=== PATIENT | female | born 1975 | race Caucasian/White ===

== ENCOUNTER 2016-12-02 17:51 | Emergency (ER) | payer MEDICAID ==
[2016-12-02] MEDS ORDERED: BUTALB/ACETAM/CAFF 50/325/40MG TABLET PO STA (18:24)
== END 2016-12-02 19:01 | disposition home or self-care (01) ==
DX: G43.909 Migraine, unspecified, not intractable, without status migrainosus (principal); Z87.891 Personal history of nicotine dependence
CPT/HCPCS: 99283; 99284; A9270

== ENCOUNTER 2016-12-04 20:08 | Emergency (ER) | payer MEDICAID ==
[2016-12-04] MEDS ORDERED: oxyCODONE/ACET 5/325 Prepack 4 PO STA (20:30)
[2016-12-04] MEDS ORDERED: ONDANSETRON 4 MG/2 ML VIAL IM STA (20:30)
[2016-12-04] MEDS ORDERED: KETOROLAC 60 MG/2 ML VIAL IM STA (20:30)
[2016-12-04] MEDS ORDERED: ONDANSETRON 4 MG/2 ML VIAL ONE (20:35)
[2016-12-04] MEDS ORDERED: oxyCODONE/ACET 5/325 Prepack 4 PO ONE (20:35)
[2016-12-04] MEDS ORDERED: KETOROLAC 60 MG/2 ML VIAL ONE (20:35)
== END 2016-12-04 20:56 | disposition home or self-care (01) ==
DX: G43.001 Migraine without aura, not intractable, with status migrainosus (principal); Z91.14 Patient's other noncompliance with medication regimen; Z87.891 Personal history of nicotine dependence

== ENCOUNTER 2016-12-08 17:05 | Emergency (ER) | payer MEDICAID ==
[2016-12-08] MEDS ORDERED: PROMETHAZINE 25 MG/1 ML VIAL IM STA (17:34)
[2016-12-08] MEDS ORDERED: diphenhydrAMINE INJ 50 MG/ML VIAL IM STA (17:34)
[2016-12-08] MEDS ORDERED: PROMETHAZINE 25 MG/1 ML VIAL ONE (17:57)
[2016-12-08] MEDS ORDERED: diphenhydrAMINE INJ 50 MG/ML VIAL ONE (17:58)
[2016-12-08] MEDS ORDERED: HALOPERIDOL 5 MG/ML VIAL IM STA (18:34)
[2016-12-08] MEDS ORDERED: HALOPERIDOL 5 MG/ML VIAL ONE (18:38)
== END 2016-12-08 19:38 | disposition left against medical advice (07) ==
DX: G43.909 Migraine, unspecified, not intractable, without status migrainosus (principal); Z87.891 Personal history of nicotine dependence; Z53.20 Procedure and treatment not carried out because of patient's decision for unspecified reasons

== ENCOUNTER 2017-02-18 20:33 | Emergency (ER) | payer MEDICAID ==
[2017-02-18] MEDS ORDERED: ALBUTEROL 8 GM INHALER INH STA (20:54)
[2017-02-18] MEDS ORDERED: HYDROcod/ACET 5/325 Prepack 6 PO STA (20:54)
[2017-02-18] MEDS ORDERED: predniSONE 20 MG TABLET PO STA (20:54)
[2017-02-18] MEDS ORDERED: AZITHROMYCIN 250 MG TABLET PO STA (20:54)
[2017-02-18] MEDS ORDERED: AZITHROMYCIN 250 MG TABLET PO ONE (20:58)
[2017-02-18] MEDS ORDERED: HYDROcod/ACET 5/325 Prepack 6 PO ONE (20:58)
[2017-02-18] MEDS ORDERED: predniSONE 20 MG TABLET ONE (20:59)
[2017-02-18] MEDS ORDERED: ALBUTEROL 8 GM INHALER INH ONE (21:06)
== END 2017-02-18 21:25 | disposition home or self-care (01) ==
DX: J34.89 Other specified disorders of nose and nasal sinuses (principal); R06.2 Wheezing; J01.00 Acute maxillary sinusitis, unspecified; H66.93 Otitis media, unspecified, bilateral; R03.0 Elevated blood-pressure reading, without diagnosis of hypertension
CPT/HCPCS: 94640; 94664; 99283; A9270; J7512

== ENCOUNTER 2017-02-26 20:07 | Emergency (ER) | payer MEDICAID ==
[2017-02-26] MEDS ORDERED: diphenhydrAMINE INJ 50 MG/ML VIAL IVP STA (21:06)
[2017-02-26] MEDS ORDERED: SODIUM CHLORIDE 0.9% 1,000 ML IV ONE ×2 (21:06→21:14)
[2017-02-26] MEDS ORDERED: PROCHLORPERAZINE 10 MG/2 ML VIAL IVP STA (21:06)
[2017-02-26] MEDS ORDERED: KETOROLAC 60 MG/2 ML VIAL IVP STA (21:07)
[2017-02-26] MEDS ORDERED: DEXAMETHASONE 10 MG/ML VIAL IVP STA (21:07)
[2017-02-26] MEDS ORDERED: diphenhydrAMINE INJ 50 MG/ML VIAL ONE (21:13)
[2017-02-26] MEDS ORDERED: DEXAMETHASONE 10 MG/ML VIAL ONE (21:14)
[2017-02-26] MEDS ORDERED: PROCHLORPERAZINE 10 MG/2 ML VIAL ONE (21:14)
[2017-02-26] MEDS ORDERED: KETOROLAC 30 MG/ML VIAL ONE (21:22)
[2017-02-26] MEDS ORDERED: oxyCOD/ACETAMIN 5 MG/325 MG TABLET PO STA (21:46)
[2017-02-26] MEDS ORDERED: oxyCOD/ACETAMIN 5 MG/325 MG TABLET PO ONE (21:50)
== END 2017-02-26 22:13 | disposition home or self-care (01) ==
DX: G43.909 Migraine, unspecified, not intractable, without status migrainosus (principal); Z87.891 Personal history of nicotine dependence
CPT/HCPCS: 96361; 96374; 96375; 99283; 99284; A9270

== ENCOUNTER 2017-04-03 09:16 | Emergency (ER) | payer MEDICAID ==
[2017-04-03 09:30] VITALS: BP 123/67
[2017-04-03] MEDS ORDERED: DEXAMETHASONE 10 MG/ML VIAL PO STA (10:04)
[2017-04-03] MEDS ORDERED: DEXAMETHASONE 10 MG/ML VIAL ONE (10:11)
--- NOTE | 2017-04-03 10:24 | ED Physician Documentation ---
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 : None HEENT: None, Chronic sinusitis Psych: Depression, Anxiety Musculoskeletal: None Derm: None - Past Surgical History Past Surgical History: Yes Ortho: Spine surgery HEENT: Tonsil/Adenoidectomy - Present Medications Home Medications: Ambulatory Orders Medication Instructions Recorded Confirmed Bupropion HCl [Wellbutrin] 200 mg PO DAILY 03/29/16 02/26/17 Aripiprazole [Abilify] 5 mg PO DAILY 07/19/16 02/26/17 traZODone [Desyrel] 100 mg PO QPM 07/19/16 02/26/17 Prazosin [Minipress] 2 mg PO DAILY 12/02/16 02/26/17 Triliptal 200 mg PO DAILY 12/02/16 02/26/17 Ketorolac [Toradol] 10 mg PO DAILY 02/18/17 02/26/17 Propranolol ER [Inderal LA] 1 tab PO DAILY 02/18/17 02/26/17 Promethazine [Phenergan] 25 - 50 mg PO Q6H PRN #10 tab 02/26/17 Clindamycin [Cleocin] 300 mg PO Q6H 7 Days 04/03/17 - Allergies Allergies/Adverse Reactions: Allergies Allergy/AdvReac Type Severity Reaction Status Date / Time Penicillins Allergy Rash Verified 02/26/17 20:11 - Social History Does the pt smoke?: No Smoking Status: Former smoker Does the pt drink ETOH?: Yes Does the pt have substance abuse?: No - Immunizations Immunizations are current?: Yes - POLST Patient has POLST: No PD ED PE NORMAL - Vitals Vital signs reviewed: Yes - HEENT HEENT: Other (left lower premoalr very TTP with some decay to inner side near gum, no visible abscess, some cheeck swelling and ant adenopathy, no sublingual swelling, no trismus) - Neck Neck: Supple, no meningeal sign, Other (no pain with tracheal manipulation) - Cardiac Cardiac: RRR, No murmur - Respiratory Respiratory: No respiratory distress, Clear bilaterally Results - Vitals Vitals: Vital Signs - 24 hr 04/03/17 09:23 Temperature 36.6 C Heart Rate 66 Respiratory 14 Rate Blood Pressure 123/67 O2 Saturation 98 Oxygen O2 Source Room air PD MEDICAL DECISION MAKING - ED course ED course: pt has an BASIL with several controlled rx this year will given decadron in ER for pain and swelling, clinda ((pt state fhx anaphylaxis to penicillin and has been advised not to take) motrin and tylenol and oragel Departure - Departure Disposition: 01 Home, Self Care Clinical Impression: Dental infection Condition: Good Instructions: ED Dental Abscess Facial Cellulitis Prescriptions: Clindamycin [Cleocin] 300 mg PO Q6H 7 Days Comments: The decadron given in the ER should decrease the pain and swelling for at least 48 hours. You can also take tylenol or motrin or try orajel as needed for the pain Take the antibiotic as prescribed - with a probiotic as discussed Follow up with your dentist tomorrow Forms: Activity restrictions
== END 2017-04-03 10:37 | disposition home or self-care (01) ==
LOC: ED 09:16
DX: K04.7 Periapical abscess without sinus (principal); Z87.891 Personal history of nicotine dependence
CPT/HCPCS: 99283

== ENCOUNTER 2017-04-18 19:15 | Emergency (ER) | payer MEDICAID ==
[2017-04-18] MEDS ORDERED: KETOROLAC 60 MG/2 ML VIAL IM STA (21:12)
[2017-04-18] MEDS ORDERED: cefTRIAXone 1 GM VIAL IM STA (21:12)
[2017-04-18] MEDS ORDERED: DEXAMETHASONE 10 MG/ML VIAL PO STA (21:13)
[2017-04-18] MEDS ORDERED: cefTRIAXone 1 GM VIAL ONE (21:17)
[2017-04-18] MEDS ORDERED: DEXAMETHASONE 10 MG/ML VIAL ONE (21:17)
--- NOTE | 2017-04-18 21:17 | ED Physician Documentation ---
PD HPI HEENT - Stated complaint Stated Complaint: DENTAL PAIN - Chief complaint Chief Complaint: Heent - History obtained from History obtained from: Patient - History of Present Illness Timing - onset: How many days ago (3) Timing - duration: Days (3) Timing - details: Gradual onset Pain level max: 8 Pain level now: 8 Location: Tooth (lower R premolar) Improves: Nothing Worsens: Temperatures Associated symptoms: Facial swelling (R lower mandible). No: Fever, Congestion , Rhinorrhea, Trismus, Unable to swallow, Swollen nodes, Headache, Cough, Other Similar symptoms before: Diagnosis (dental abscess) Recently seen: Emergency Dept (2 weeks ago for same, has not been able to see her dentist) Review of Systems Constitutional: denies: Fever, Chills Throat: denies: Sore throat Cardiac: denies: Chest pain / pressure Respiratory: denies: Cough, Wheezing : denies: Dysuria, Now EGA Skin: denies: Rash Musculoskeletal: denies: Neck pain, Back pain Neurologic: denies: Headache PD PAST MEDICAL HISTORY - Past Medical History Cardiovascular: Murmur Respiratory: None Neuro: Headache/migraine Endocrine/Autoimmune: None GI: None 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 : None HEENT: None, Chronic sinusitis Psych: Depression, Anxiety Musculoskeletal: None Derm: None - Past Surgical History Past Surgical History: Yes Ortho: Spine surgery HEENT: Tonsil/Adenoidectomy - Present Medications Home Medications: Ambulatory Orders Medication Instructions Recorded Confirmed Bupropion HCl [Wellbutrin] 200 mg PO DAILY 03/29/16 04/18/17 Aripiprazole [Abilify] 5 mg PO DAILY 07/19/16 04/18/17 traZODone [Desyrel] 100 mg PO QPM 07/19/16 04/18/17 Prazosin [Minipress] 2 mg PO DAILY 12/02/16 04/18/17 Triliptal 200 mg PO DAILY 12/02/16 04/18/17 Ketorolac [Toradol] 10 mg PO DAILY 02/18/17 04/18/17 Propranolol ER [Inderal LA] 1 tab PO DAILY 02/18/17 04/18/17 Promethazine [Phenergan] 25 - 50 mg PO Q6H PRN #10 tab 02/26/17 04/18/17 Clindamycin HCl 300 mg PO Q6H #40 capsule 04/18/17 Hydrocodone/Acetaminophen 1 - 2 each PO Q6H PRN #4 tablet 04/18/17 [Hydrocodon-Acetaminophen 5-325] - Allergies Allergies/Adverse Reactions: Allergies Allergy/AdvReac Type Severity Reaction Status Date / Time Penicillins Allergy Rash Verified 02/26/17 20:11 - Social History Does the pt smoke?: No Smoking Status: Former smoker Does the pt drink ETOH?: Yes Does the pt have substance abuse?: No - Immunizations Immunizations are current?: Yes - POLST Patient has POLST: No PD ED PE NORMAL - Vitals Vital signs reviewed: Yes - General General: Alert and oriented X 3, No acute distress - HEENT HEENT: Other (Swelling to the lateral aspects of the right lower premolar. Tenderness is at this tooth. There is induration without fluctuance. 1x1 cm area) - Neck Neck: Supple, no meningeal sign, No adenopathy - Cardiac Cardiac: RRR - Respiratory Respiratory: No respiratory distress, Clear bilaterally - Derm Derm: Warm and dry - Neuro Neuro: Alert and oriented X 3 - Psych Psych: Normal mood, Normal affect Results - Vitals Vitals: Vital Signs - 24 hr 04/18/17 04/18/17 19:17 21:58 Temperature 36.3 C L 36.9 C Heart Rate 80 68 Respiratory 16 19 Rate Blood Pressure 122/74 116/74 O2 Saturation 97 97 Oxygen O2 Source Room air PD MEDICAL DECISION MAKING - ED course Complexity details: considered differential, d/w patient ED course: Patient is a 41-year-old female who presents to the emergency department with recurrent dental infections. Has not seen her dentist since her last visit here. The facial swelling and has not yet obsessed. We will give her steroids, small amount of pain medications and place her back on antibiotics. Given intramuscular Rocephin here. No Ludwigs angina. Normal phonation. No trismus. No facial cellulitis. Patient counseled regarding signs and symptoms for which I believe and urgent re-evaluation would be necessary. Patient with good understanding of and agreement to plan and is comfortable going home at this time This document was made in part using voice recognition software. While efforts are made to proofread this document, sound alike and grammatical errors may occur. Departure - Departure Disposition: 01 Home, Self Care Clinical Impression: Dental infection Condition: Good Instructions: ED Abscess Tooth Follow-Up: your,dentist tomorrow [Other] Jordon Cotto MD [Primary Care Provider] - Prescriptions: Clindamycin HCl 300 mg PO Q6H #40 capsule Hydrocodone/Acetaminophen [Hydrocodon-Acetaminophen 5-325] 1 - 2 each PO Q6H PRN #4 tablet PRN Reason: pain Comments: Take all antibiotics until gone. Return if you worsen. It is important that you call your dentist in the morning for close follow-up. You will likely need the tooth pulled. Discharge Date/Time: 04/18/17 22:22
[2017-04-18] MEDS ORDERED: KETOROLAC 60 MG/2 ML VIAL ONE (21:18)
[2017-04-18] MEDS ORDERED: LIDOCAINE 1% 2 ML VIAL ONE (21:18)
[2017-04-18 21:59] VITALS: BP 116/74
[2017-04-18] MEDS ORDERED: HYDROcod/ACET 5/325 Prepack 6 PO ONE ×2 (22:13→22:14)
== END 2017-04-18 22:22 | disposition home or self-care (01) ==
LOC: ED 19:15
DX: K04.7 Periapical abscess without sinus (principal); Z87.891 Personal history of nicotine dependence
CPT/HCPCS: 96372; 99283

== ENCOUNTER 2017-06-07 20:45 | Emergency (ER) | payer MEDICAID ==
--- NOTE | 2017-06-07 21:03 | ED Physician Documentation ---
PD HPI HEADACHE - Stated complaint Stated Complaint: HEADACHE - Chief complaint Chief Complaint: Neuro - History obtained from History obtained from: Patient - History of Present Illness Timing - onset: Today (this morning) Timing - onset during: Rest Timing - details: Gradual onset, Constant, Waxing and waning Pain level now: 8 Worst headache ever?: No: Worst headache ever? Location: Front, Right, Left Quality: Throbbing Associated symptoms: Nausea. No: Fever, Stiff neck, Vomiting, Weakness, Numbness Improved by: Rest, Dark room, Quiet Worsened by: Light, Noise Contributing factors: No: Anticoagulated, Hypertension Similar symptoms before: Diagnosis (c/w previous episodes of migraine headache) - Additional information Additional information: 11th [facility] ED visit over past 12 months. She presents with "migraine all day since this morning" (per patient), typical of her migraine headaches. I do not see any medications for acute headache on her list of prescribed medications, only preventive meds. I discussed this with her, and she says her neurologist "didn't really listen to me" (per patient) when she told him that she hadn't responded to typical acute medications (such as Imitrex). Review of Systems Constitutional: denies: Fever, Chills, Sweats Eyes: reports: Photophobia Cardiac: reports: Reviewed and negative Respiratory: reports: Reviewed and negative GI: reports: Nausea. 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 : None HEENT: None, Chronic sinusitis Psych: Depression, Anxiety Musculoskeletal: None Derm: None - Past Surgical History Past Surgical History: Yes Ortho: Spine surgery HEENT: Tonsil/Adenoidectomy - Present Medications Home Medications: Ambulatory Orders Medication Instructions Recorded Confirmed Bupropion HCl [Wellbutrin] 200 mg PO DAILY 03/29/16 06/07/17 traZODone [Desyrel] 100 mg PO QPM 07/19/16 06/07/17 Prazosin [Minipress] 2 mg PO DAILY 12/02/16 06/07/17 Propranolol ER [Inderal LA] 1 tab PO DAILY 02/18/17 06/07/17 Promethazine [Phenergan] 25 - 50 mg PO Q6H PRN #10 tab 02/26/17 06/07/17 - Allergies Allergies/Adverse Reactions: Allergies Allergy/AdvReac Type Severity Reaction Status Date / Time Penicillins Allergy Rash Verified 06/07/17 20:50 - Social History Does the pt smoke?: No Smoking Status: Former smoker Does the pt drink ETOH?: Yes Does the pt have substance abuse?: No - Immunizations Immunizations are current?: Yes - POLST Patient has POLST: No PD ED PE NORMAL - Vitals Vital signs reviewed: Yes - General General: Alert and oriented X 3, No acute distress (NAD with lights off in room) , Well developed/nourished - HEENT HEENT: PERRL, EOMI, Moist mucous membranes - Neck Neck: Supple, no meningeal sign - Cardiac Cardiac: RRR, No murmur - Respiratory Respiratory: No respiratory distress, Clear bilaterally - Neuro Neuro: Alert and oriented X 3, 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 Patient says she feels the same, maybe worse. She now tells me she forgot that Toradol makes her headache worse. I had specifically discussed each individual medication I intended to order for her (and that these were based on my review of previous charts from her previous visits to [facility]), including Toradol. At that time, patient did not mention any history of difficulty with Toradol. She says the last time she was here for headache, the doctor "didn't really listen to me", and "he insisted I have the Toradol". I asked her what medications tended to work for her, and shes says two percocet and "a muscle relaxant". She does not know which muscle relaxant works for her. I explained that I would order a second dose of percocet, and a dose of Flexeril (cyclobenzaprine). She says she has no recollection of difficulty with this medication. On reevaluation, after the second dose of percocet, and the one dose of flexeril, patient appears comfortable and reports significant relief , and that she is comfortable with d/c home. Given take-home flexeril and percocet. She says she will contact her doctor in the morning to work on arranging a follow-up appointment Departure - Departure Disposition: 01 Home, Self Care Clinical Impression: Migraine Condition: Good Instructions: ED Headache Migraine Follow-Up: Jordon Cotto MD [Primary Care Provider] - Discharge Date/Time: 06/07/17 23:16
[2017-06-07] MEDS ORDERED: KETOROLAC 60 MG/2 ML VIAL IM STA (21:20)
[2017-06-07] MEDS ORDERED: PROCHLORPERAZINE 5 MG TABLET PO STA (21:20)
[2017-06-07] MEDS ORDERED: oxyCOD/ACETAMIN 5 MG/325 MG TABLET PO STA ×2 (21:21→22:09)
[2017-06-07] MEDS ORDERED: DEXAMETHASONE 10 MG/ML VIAL PO STA (21:21)
[2017-06-07] MEDS ORDERED: diphenhydrAMINE 25 MG CAPSULE PO STA (21:21)
[2017-06-07] MEDS ORDERED: PROCHLORPERAZINE 5 MG TABLET ONE (21:29)
[2017-06-07] MEDS ORDERED: diphenhydrAMINE 25 MG CAPSULE PO ONE (21:29)
[2017-06-07] MEDS ORDERED: oxyCOD/ACETAMIN 5 MG/325 MG TABLET PO ONE ×2 (21:29→22:10)
[2017-06-07] MEDS ORDERED: KETOROLAC 60 MG/2 ML VIAL ONE (21:29)
[2017-06-07] MEDS ORDERED: DEXAMETHASONE 10 MG/ML VIAL ONE (21:29)
[2017-06-07] MEDS ORDERED: CYCLOBENZAPRINE 10 MG TABLET PO STA (22:09)
[2017-06-07] MEDS ORDERED: CYCLOBENZAPRINE 10 MG TABLET PO ONE (22:10)
[2017-06-07] MEDS ORDERED: CYCLOBENZAPRINE 10 MG Prepack 2 PO PRN (22:57)
[2017-06-07] MEDS ORDERED: oxyCODONE/ACET 5/325 Prepack 4 PO STA (22:57)
[2017-06-07] MEDS ORDERED: oxyCODONE/ACET 5/325 Prepack 4 PO ONE (22:59)
[2017-06-07] MEDS ORDERED: CYCLOBENZAPRINE 10 MG Prepack 2 PO ONE (23:00)
[2017-06-07 23:13] VITALS: BP 99/67
== END 2017-06-07 23:16 | disposition home or self-care (01) ==
LOC: ED 20:45
DX: G43.909 Migraine, unspecified, not intractable, without status migrainosus (principal); Z87.891 Personal history of nicotine dependence
CPT/HCPCS: 96372; 99283; A9270

== ENCOUNTER 2017-06-12 20:06 | Emergency (ER) | payer MEDICAID ==
--- NOTE | 2017-06-12 22:08 | ED Physician Documentation ---
PD HPI HEADACHE - Stated complaint Stated Complaint: HEADACHE - Chief complaint Chief Complaint: Neuro - History obtained from History obtained from: Patient - History of Present Illness Timing - onset: How many days ago (2-3) Timing - onset during: Light activity Timing - duration: Days Timing - details: Gradual onset, Still present, Waxing and waning Worst headache ever?: No: Worst headache ever? Location: Back Quality: Throbbing, Aching, Other (also with muscle stiffness and tenderness in lower cervical area both sides.) Improved by: No: Dark room, Meds (OTC ibuprofen) Worsened by: Light Contributing factors: No: Recent illness, Trauma Similar symptoms before: Diagnosis (migraines and muscle tension headaches) Recently seen: Emergency Dept Review of Systems Constitutional: denies: Fever, Chills Eyes: reports: Photophobia. denies: Loss of vision, Decreased vision Nose: denies: Rhinorrhea / runny nose, Congestion Throat: denies: Sore throat Respiratory: denies: Cough Neurologic: reports: Headache. 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 : None HEENT: None, Chronic sinusitis Psych: Depression, Anxiety Musculoskeletal: None Derm: None - Past Surgical History Past Surgical History: Yes Ortho: Spine surgery HEENT: Tonsil/Adenoidectomy - Present Medications Home Medications: Ambulatory Orders Medication Instructions Recorded Confirmed Bupropion HCl [Wellbutrin] 200 mg PO DAILY 03/29/16 06/07/17 traZODone [Desyrel] 100 mg PO QPM 07/19/16 06/07/17 Prazosin [Minipress] 2 mg PO DAILY 12/02/16 06/07/17 Propranolol ER [Inderal LA] 1 tab PO DAILY 02/18/17 06/07/17 Promethazine [Phenergan] 25 - 50 mg PO Q6H PRN #10 tab 02/26/17 06/07/17 - Allergies Allergies/Adverse Reactions: Allergies Allergy/AdvReac Type Severity Reaction Status Date / Time Penicillins Allergy Rash Verified 06/12/17 20:17 - Social History Does the pt smoke?: No Smoking Status: Former smoker Does the pt drink ETOH?: Yes Does the pt have substance abuse?: No - Immunizations Immunizations are current?: Yes - POLST Patient has POLST: No PD ED PE NORMAL - Vitals Vital signs reviewed: Yes - General General: Alert and oriented X 3, No acute distress, Well developed/nourished - HEENT HEENT: PERRL, EOMI (mild light sensitive) - Neck Neck: Supple, no meningeal sign, No bony TTP, No adenopathy, Other (muscular tenderness mid to upper trapezius area both sides. No redness nor rash. ) - Cardiac Cardiac: RRR, No murmur - Respiratory Respiratory: Clear bilaterally - Derm Derm: Normal color, Warm and dry, No rash - Extremities Extremities: Normal ROM s pain - Neuro Neuro: Alert and oriented X 3, bioinformaticist 2-12 intact, No motor deficit, No sensory deficit, Normal speech, Other - Psych Psych: Normal mood, Normal affect Results - Vitals Vitals: Vital Signs - 24 hr 06/12/17 06/12/17 20:15 23:03 Temperature 36.2 C L Heart Rate 55 L 77 Respiratory 16 17 Rate Blood Pressure 111/73 116/57 L O2 Saturation 99 96 Oxygen O2 Source Room air PD MEDICAL DECISION MAKING - ED course Complexity details: reviewed old records, considered differential (seems like muscle tension headache more than migraine and she says muscle relaxant and Percocet work best in the past. Review of recent visits suggest migraine targeted meds did not work well. She was amenable to muscle injections in trapezius upper area. I did injections in lateral lower cervical area muscles 2 ml each side with Marcaine. Also with PO meds. She says she was feeling much better after about 1/2 hour. Feels able to go. Did not want Rx for meds ( prepack given). I got less of a vibe for med seeking and more just poor tolerance of the headache/pain. ), d/w patient Departure - Departure Disposition: 01 Home, Self Care Clinical Impression: Migraine Qualifiers: Migraine type: without aura Status migrainosus presence: without status migrainosus Intractability: not intractable Qualified Code(s): G43.009 - Migraine without aura, not intractable, without status migrainosus Condition: Stable Record reviewed to determine appropriate education?: Yes Instructions: ED Headache Migraine Follow-Up: Jordon Cotto MD [Primary Care Provider] - Comments: Drink lots of fluids. Tylenol or ibuprofen if needed for pains. At the oxycodone from the prepack if needed every 6 hours. Follow-up with her primary care in the next couple of days. Discharge Date/Time: 06/12/17 23:04
[2017-06-12] MEDS ORDERED: oxyCOD/ACETAMIN 5 MG/325 MG TABLET PO STA (22:20)
[2017-06-12] MEDS ORDERED: CYCLOBENZAPRINE 10 MG TABLET PO STA (22:20)
[2017-06-12] MEDS ORDERED: CYCLOBENZAPRINE 10 MG TABLET PO ONE (22:22)
[2017-06-12] MEDS ORDERED: oxyCOD/ACETAMIN 5 MG/325 MG TABLET PO ONE (22:22)
[2017-06-12] MEDS ORDERED: ONDANSETRON ODT 4 MG Prepack 2 TL PRN (22:56)
[2017-06-12] MEDS ORDERED: oxyCODONE/ACET 5/325 Prepack 4 PO STA (22:56)
[2017-06-12] MEDS ORDERED: oxyCODONE/ACET 5/325 Prepack 4 PO ONE (22:57)
[2017-06-12] MEDS ORDERED: ONDANSETRON ODT 4 MG Prepack 2 TL ONE (22:57)
[2017-06-12 23:04] VITALS: BP 116/57
== END 2017-06-12 23:04 | disposition home or self-care (01) ==
LOC: ED 20:06
DX: G43.009 Migraine without aura, not intractable, without status migrainosus (principal); M79.1 Myalgia; Z87.891 Personal history of nicotine dependence
CPT/HCPCS: 20552; 99283; 99284; A9270

== ENCOUNTER 2017-06-22 19:26 | Emergency (ER) | payer MEDICAID ==
[2017-06-22] MEDS ORDERED: LIDOCAINE 2%-EPI 1:100000 20 ML MDV SUBQ STA (21:23)
[2017-06-22] MEDS ORDERED: LIDOCAINE TOPICAL 4% 50 ML BOTTLE MM STA (21:23)
[2017-06-22] MEDS ORDERED: LIDOCAINE 2% 10 ML MDV ONE (21:30)
[2017-06-22] MEDS ORDERED: LIDOCAINE TOPICAL 4% 50 ML BOTTLE ONE (21:43)
[2017-06-22 22:05] VITALS: BP 114/64
[2017-06-22] MEDS ORDERED: oxyCOD/ACETAMIN 5 MG/325 MG TABLET PO STA (22:31)
[2017-06-22] MEDS ORDERED: CYCLOBENZAPRINE 10 MG TABLET PO STA (22:32)
--- NOTE | 2017-06-22 22:34 | ED Physician Documentation ---
PD HPI HEADACHE - Stated complaint Stated Complaint: WILKERSON - Chief complaint Chief Complaint: Neuro - History obtained from History obtained from: Patient, Family - History of Present Illness Timing - onset: How many days ago (3) Timing - duration: Days Timing - details: Gradual onset Pain level max: 9 Pain level now: 9 Worst headache ever?: No: Worst headache ever? Location: Global Quality: Throbbing, Aching. No: Thunderclap Associated symptoms: No: Fever, Stiff neck, Nausea, Vomiting, Weakness, Numbness , Syncope, Seizure, Eye pain, Vision changes Improved by: Rest Worsened by: Moving Similar symptoms before: Diagnosis (Tension headaches, possible migraine headaches) Recently seen: Other (Seen here several times in the past for same. States has a neurology appointment upcoming) - Additional information Additional information: Patient states that she has been under increasing stress recently and having increasing arguments with her spouse Review of Systems Constitutional: denies: Fever, Chills Eyes: denies: Decreased vision Nose: denies: Rhinorrhea / runny nose, Congestion Throat: denies: Sore throat Respiratory: denies: Cough, Wheezing GI: denies: Abdominal Pain, Nausea, Vomiting : denies: Dysuria, Now EGA Skin: denies: Rash Musculoskeletal: denies: Neck pain, Back pain Neurologic: denies: Focal weakness, Numbness, LOC PD PAST MEDICAL HISTORY - Past Medical History Cardiovascular: Murmur Respiratory: None Neuro: Headache/migraine Endocrine/Autoimmune: None 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 HEENT: None, Chronic sinusitis Psych: Depression, Anxiety Musculoskeletal: None Derm: None - Past Surgical History Past Surgical History: Yes Ortho: Spine surgery HEENT: Tonsil/Adenoidectomy - Present Medications Home Medications: Ambulatory Orders Medication Instructions Recorded Confirmed Bupropion HCl [Wellbutrin] 200 mg PO DAILY 03/29/16 06/22/17 traZODone [Desyrel] 100 mg PO QPM 07/19/16 06/22/17 Prazosin [Minipress] 2 mg PO DAILY 12/02/16 06/22/17 Cyclobenzaprine [Flexeril] 10 mg PO TID PRN #10 tablet 06/22/17 Oxycodone HCl/Acetaminophen 1 - 2 each PO Q6H PRN #7 tablet 06/22/17 [Percocet 5-325 mg Tablet] - Allergies Allergies/Adverse Reactions: Allergies Allergy/AdvReac Type Severity Reaction Status Date / Time Penicillins Allergy Rash Verified 06/22/17 19:37 - Social History Does the pt smoke?: No Smoking Status: Former smoker Does the pt drink ETOH?: Yes Does the pt have substance abuse?: No - Immunizations Immunizations are current?: Yes - POLST Patient has POLST: No PD ED PE NORMAL - Vitals Vital signs reviewed: Yes (Initial pulse oximetry was 97% on room air) - General General: Alert and oriented X 3, No acute distress - HEENT HEENT: PERRL, EOMI, Moist mucous membranes - Neck Neck: Supple, no meningeal sign - Cardiac Cardiac: RRR, Strong equal pulses - Respiratory Respiratory: No respiratory distress, Clear bilaterally - Abdomen Abdomen: Soft, Non tender - Derm Derm: Warm and dry - Extremities Extremities: No edema - Neuro Neuro: Alert and oriented X 3, 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 posting specialist 2-12 intact, No motor deficit, No sensory deficit, Normal speech - Psych Psych: Normal mood, Normal affect Results - Vitals Vitals: Vital Signs - 24 hr 06/22/17 06/22/17 19:35 22:03 Temperature 36.8 C Heart Rate 75 51 L Respiratory 18 14 Rate Blood Pressure 129/74 114/64 O2 Saturation 7 L 98 Oxygen O2 Source Room air Procedures - Regional nerve block Nerve block site: Other (Occipital) Right / left: Both Nerve block anesthesia: Lidocaine 2% Nerve block aftercare: Excellent anesthesia, Patient tolerated well, No complications PD MEDICAL DECISION MAKING - ED course Complexity details: reviewed old records, re-evaluated patient, considered differential, d/w patient ED course: Patient is a 41-year-old female who presents to the emergency department with what sounds like a combination of a tension headache and migraine headache. She states that occipital nerve blocks have worked well for her in the past and this was performed. A sphenopalatine ganglion block was also performed with intranasal lidocaine, overall this reduced her headache by approximately 60-70% . We will prescribe her a small amount of medications for home as well. She was also given a dose of oxycodone and Flexeril prior to discharge. Looking back at her medical records, she tends to have these headaches that occur for 3- 4 days at a time. Possible cluster headaches? She is following up with neurology for further evaluation and care. Has had neuro imaging of her brain performed in the past without acute abnormality found. No evidence of subarachnoid hemorrhage today. This document was made in part using voice recognition software. While efforts are made to proofread this document, sound alike and grammatical errors may occur. Departure - Departure Disposition: 01 Home, Self Care Clinical Impression: Tension headache Condition: Good Instructions: ED Headache Tension, ED Cephalgia Unspecified Follow-Up: Jordon Cotto MD [Primary Care Provider] - Within 1 week Prescriptions: Cyclobenzaprine [Flexeril] 10 mg PO TID PRN #10 tablet PRN Reason: Spasms Oxycodone HCl/Acetaminophen [Percocet 5-325 mg Tablet] 1 - 2 each PO Q6H PRN #7 tablet PRN Reason: pain Comments: Return if you worsen. Make sure to follow-up with your neurologist for further evaluation and care. Do not drink alcohol or drive while on narcotic pain medicine. Note that many narcotic pain relievers also contain tylenol/acetaminophen. Please ensure that your total dose of acetaminophen from all sources does not exceed 3 grams (3000mg) per day. You may constipated on this medication, take a stool softener such as "Colace" twice a day while you are on it. Also recommend a [id number] laxative such as senna or MiraLAX any day that you do not have a bowel movement. If you received narcotic pain medication in the emergency department, do not drive or operate machinery for the next 24 hours. Discharge Date/Time: 06/22/17 23:00
[2017-06-22] MEDS ORDERED: oxyCOD/ACETAMIN 5 MG/325 MG TABLET PO ONE (22:37)
[2017-06-22] MEDS ORDERED: CYCLOBENZAPRINE 10 MG TABLET PO ONE (22:38)
== END 2017-06-22 23:00 | disposition home or self-care (01) ==
LOC: ED 19:26
DX: G44.209 Tension-type headache, unspecified, not intractable (principal); Z87.891 Personal history of nicotine dependence
CPT/HCPCS: 64405; 96372; 99283; A9270

== ENCOUNTER 2017-06-28 22:07 | Emergency (ER) | payer MEDICAID ==
[2017-06-28] MEDS ORDERED: oxyCOD/ACETAMIN 5 MG/325 MG TABLET PO STA (23:01)
[2017-06-28] MEDS ORDERED: LIDOCAINE 2% 10 ML MDV ONE (23:06)
[2017-06-28] MEDS ORDERED: oxyCOD/ACETAMIN 5 MG/325 MG TABLET PO ONE (23:16)
--- NOTE | 2017-06-28 23:53 | ED Physician Documentation ---
PD HPI HEADACHE - Stated complaint Stated Complaint: WILKERSON - Chief complaint Chief Complaint: Neuro - History obtained from History obtained from: Patient - History of Present Illness Timing - onset: Chronic Timing - onset during: Rest Timing - details: Gradual onset, Still present Worst headache ever?: Worst headache ever? (no) Location: Back Quality: Aching, Tightness Associated symptoms: No: Fever, Stiff neck, Nausea, Vomiting, Weakness, Syncope Improved by: Dark room, Meds Worsened by: Light Contributing factors: No: Anticoagulated, Possible carbon monoxide Similar symptoms before: Work up / diagnostics, Treatment, Follow up Recently seen: Emergency Dept - Additional information Additional information: Patient is a 41 year old female with a history of recurrent headaches who is presenting to the emergency department for headaches. patient states that this is fairly similar to her previous headaches. Patient states that she has been working with a neurologist and has a follow up appointment next week. Patient states that nerve blocks tend to help but toradol, reglan and fluids tends to make her symptoms worse. Review of Systems Constitutional: denies: Fever, Chills Eyes: reports: Photophobia Ears: denies: Ear pain, Drainage/discharge Nose: denies: Rhinorrhea / runny nose, Congestion Throat: denies: Dental pain / toothache, Sore throat Cardiac: denies: Chest pain / pressure, Palpitations GI: denies: Abdominal Pain, Nausea, Vomiting : denies: Dysuria, Frequency Musculoskeletal: reports: Neck pain. denies: Back pain, Extremity pain Neurologic: reports: Headache. 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 HEENT: None, Chronic sinusitis Psych: Depression, Anxiety Musculoskeletal: None Derm: None - Past Surgical History Past Surgical History: Yes Ortho: Spine surgery HEENT: Tonsil/Adenoidectomy - Present Medications Home Medications: Ambulatory Orders Medication Instructions Recorded Confirmed Bupropion HCl [Wellbutrin] 200 mg PO DAILY 03/29/16 06/28/17 traZODone [Desyrel] 100 mg PO QPM 07/19/16 06/28/17 Prazosin [Minipress] 2 mg PO DAILY 12/02/16 06/28/17 Cyclobenzaprine [Flexeril] 10 mg PO TID PRN #10 tablet 06/22/17 06/28/17 Oxycodone HCl/Acetaminophen 1 - 2 each PO Q6H PRN #7 tablet 06/22/17 06/28/17 [Percocet 5-325 mg Tablet] - Allergies Allergies/Adverse Reactions: Allergies Allergy/AdvReac Type Severity Reaction Status Date / Time Penicillins Allergy Rash Verified 06/28/17 22:14 - Social History Does the pt smoke?: No Smoking Status: Former smoker Does the pt drink ETOH?: Yes Does the pt have substance abuse?: No - Immunizations Immunizations are current?: Yes - POLST Patient has POLST: No PD ED PE NORMAL - Vitals Vital signs reviewed: Yes - General General: Alert and oriented X 3, No acute distress - HEENT HEENT: Atraumatic, PERRL, Moist mucous membranes, Pharynx benign - Neck Neck: Supple, no meningeal sign - Cardiac Cardiac: RRR, No murmur - Respiratory Respiratory: No respiratory distress - Abdomen Abdomen: Soft, Non tender, Non distended - Derm Derm: Normal color, Warm and dry, No rash - Extremities Extremities: No deformity, No edema - Neuro Neuro: Alert and oriented X 3, No motor deficit, No sensory deficit, Normal speech - Psych Psych: Normal mood, Normal affect PD ED PE EXPANDED - Neck Neck: Other (midline scar from prior surgery, mild hypertonicty of paraspinal muscles ) Results - Vitals Vitals: Vital Signs - 24 hr 06/28/17 06/29/17 22:10 00:01 Temperature 36.2 C L Heart Rate 75 81 Respiratory 74 H 16 Rate Blood Pressure 114/66 121/73 O2 Saturation 97 100 Oxygen O2 Source Room air Procedures - Regional nerve block Nerve block site: Other (occipital) Right / left: Both Nerve block anesthesia: Lidocaine 2% Nerve block aftercare: Patient tolerated well, No complications PD MEDICAL DECISION MAKING - ED course Complexity details: reviewed old records, re-evaluated patient, considered differential, d/w patient ED course: Patient was seen and examined at bedside. Nerve block was performed and patient was treated with 2 percocet. Upon re-evaluation patient stated that she was feeling much better. patient had no focal deficit and there was no concern for serious etiology to her headache. patient required no further work up and was stable for discharge with outpatient follow up. Departure - Departure Disposition: 01 Home, Self Care Clinical Impression: Head ache Instructions: ED Headache Tension Follow-Up: Jordon Cotot MD [Primary Care Provider] - Comments: You should continue with your headache management and your neurologist follow up. You should keep track with your journal and try to avoid any triggers. stay well hydrated. You should return to the emergency department for fevers, change in vision, change in mental status, new worsening or uncontrollable sympotms. Discharge Date/Time: 06/29/17 00:02
[2017-06-29 00:02] VITALS: BP 121/73
== END 2017-06-29 00:02 | disposition home or self-care (01) ==
LOC: ED 22:07
DX: R51 Headache (principal); Z87.891 Personal history of nicotine dependence
CPT/HCPCS: 64405; 99283; A9270

== ENCOUNTER 2017-07-04 17:12 | Emergency (ER) | payer MEDICAID ==
[2017-07-04] MEDS ORDERED: oxyCOD/ACETAMIN 5 MG/325 MG TABLET PO STA (17:57)
[2017-07-04] MEDS ORDERED: LIDOCAINE MPF 1%-EPI 1:200000 30 ML VIAL ONE (18:02)
[2017-07-04] MEDS ORDERED: ONDANSETRON ODT 4 MG TABLET TL STA (18:06)
--- NOTE | 2017-07-04 18:06 | ED Physician Documentation ---
PD HPI HEADACHE - Stated complaint Stated Complaint: HEAD ACHE - Chief complaint Chief Complaint: Trauma Hd/Nk - History obtained from History obtained from: Patient - History of Present Illness Timing - onset: Other (She has very frequent migraine headaches, had a gradual onset typical headache associated with phonophobia and photophobia and nausea yesterday and requests an occipital nerve block.) Review of Systems Constitutional: reports: Reviewed and negative Eyes: reports: Photophobia. 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 HEENT: None, Chronic sinusitis Psych: Depression, Anxiety Musculoskeletal: None Derm: None - Past Surgical History Past Surgical History: Yes Ortho: Spine surgery HEENT: Tonsil/Adenoidectomy - Present Medications Home Medications: Ambulatory Orders Medication Instructions Recorded Confirmed Bupropion HCl [Wellbutrin] 200 mg PO DAILY 03/29/16 07/04/17 traZODone [Desyrel] 100 mg PO QPM 07/19/16 07/04/17 Prazosin [Minipress] 2 mg PO DAILY 12/02/16 07/04/17 ARIPiprazole [Abilify] 5 mg PO DAILY 07/04/17 07/04/17 Oxycodone HCl/Acetaminophen 1 - 2 tab PO Q4H PRN #10 tablet 07/04/17 [Percocet 5-325 mg Tablet] - Allergies Allergies/Adverse Reactions: Allergies Allergy/AdvReac Type Severity Reaction Status Date / Time Penicillins Allergy Rash Verified 06/28/17 22:14 - Social History Does the pt smoke?: No Smoking Status: Former smoker Does the pt drink ETOH?: Yes Does the pt have substance abuse?: No - Immunizations Immunizations are current?: Yes - POLST Patient has POLST: No PD ED PE NORMAL - Vitals Vital signs reviewed: Yes - General General: Alert and oriented X 3, No acute distress - HEENT HEENT: PERRL, EOMI - Neck Neck: Supple, no meningeal sign, No bony TTP - Neuro Neuro: Alert and oriented X 3, 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 Departure - Departure Disposition: 01 Home, Self Care Clinical Impression: Head ache Qualifiers: Headache type: unspecified Headache chronicity pattern: acute headache Intractability: not intractable Qualified Code(s): R51 - Headache Condition: Good Record reviewed to determine appropriate education?: Yes Instructions: ED Cephalgia Unspecified Prescriptions: Oxycodone HCl/Acetaminophen [Percocet 5-325 mg Tablet] 1 - 2 tab PO Q4H PRN #10 tablet PRN Reason: Pain Comments: Call your doctor to arrange a follow-up appointment, make the next available appointment. In the interim, return anytime if worse or if new symptoms develop.
[2017-07-04] MEDS ORDERED: oxyCOD/ACETAMIN 5 MG/325 MG TABLET PO ONE (18:10)
[2017-07-04] MEDS ORDERED: ONDANSETRON ODT 4 MG TABLET ONE (18:14)
[2017-07-04 18:40] VITALS: BP 117/76
== END 2017-07-04 18:42 | disposition home or self-care (01) ==
LOC: ED 17:12
DX: R51 Headache (principal); Z87.891 Personal history of nicotine dependence
CPT/HCPCS: 64405; 99283; A9270; Q0162

== ENCOUNTER 2017-07-10 17:03 | Emergency (ER) | payer MEDICAID ==
[2017-07-10] MEDS ORDERED: ONDANSETRON ODT 4 MG TABLET TL STA (17:53)
[2017-07-10] MEDS ORDERED: oxyCOD/ACETAMIN 5 MG/325 MG TABLET PO STA (17:53)
[2017-07-10] MEDS ORDERED: oxyCOD/ACETAMIN 5 MG/325 MG TABLET PO ONE (17:59)
[2017-07-10] MEDS ORDERED: ONDANSETRON ODT 4 MG TABLET ONE (17:59)
[2017-07-10] MEDS ORDERED: LIDOCAINE 2% 10 ML MDV ONE (18:04)
--- NOTE | 2017-07-10 18:29 | ED Physician Documentation ---
PD HPI HEADACHE - Stated complaint Stated Complaint: MIGRAINE - Chief complaint Chief Complaint: General - History obtained from History obtained from: Patient - History of Present Illness Timing - onset: Today Timing - details: Still present Worst headache ever?: Worst headache ever? (No.) Location: Global Associated symptoms: Nausea. No: Fever, Vomiting, Weakness, Vision changes Similar symptoms before: Diagnosis (History of migraine headaches.) Recently seen: Emergency Dept (She was seen in the emergency department here one week ago with similar headache. This is her fourth emergency department visit for headache this month.) - Additional information Additional information: The patient is a 42-year-old female who presents with headache that she describes as "migraine." Her headache today started this morning and has persisted throughout the day. It is global, with associated nausea. She denies vomiting, fever, or visual disturbance. She has history of similar symptoms in the past and has had frequent ED visits with similar headaches. She reports that she often gets improvement with occipital nerve blocks. Review of her medical record reveals that she has received occipital nerve blocks on her last 3 emergency department visits. Surgical history is significant for C3-4 fusion in 1996. Review of Systems Constitutional: denies: Fever Eyes: denies: Decreased vision, Photophobia Ears: denies: Ear pain, Tinnitus/ringing Nose: denies: Congestion Throat: denies: Sore throat Cardiac: denies: Palpitations Respiratory: denies: Dyspnea, Cough GI: reports: Nausea. denies: Abdominal Pain, Vomiting : denies: Dysuria Skin: denies: Rash Musculoskeletal: reports: Neck pain (Mild, chronic.). denies: Extremity pain Neurologic: reports: Headache. 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 : None HEENT: None, Chronic sinusitis Psych: Depression, Anxiety Musculoskeletal: None Derm: None - Past Surgical History Past Surgical History: Yes Ortho: Spine surgery HEENT: Tonsil/Adenoidectomy - Present Medications Home Medications: Ambulatory Orders Medication Instructions Recorded Confirmed Bupropion HCl [Wellbutrin] 200 mg PO DAILY 03/29/16 07/10/17 traZODone [Desyrel] 100 mg PO QPM 07/19/16 07/10/17 Prazosin [Minipress] 2 mg PO DAILY 12/02/16 07/10/17 ARIPiprazole [Abilify] 5 mg PO DAILY 07/04/17 07/10/17 OXcarbazepine [Trileptal] 0 mg PO BID 07/10/17 07/10/17 Promethazine [Phenergan] 25 - 50 mg PO Q6H PRN #10 tab 07/10/17 oxyCODONE/ACET 5/325 [Percocet 5 1 tab PO Q4-6H PRN #10 tablet 07/10/17 mg/325 mg] - Allergies Allergies/Adverse Reactions: Allergies Allergy/AdvReac Type Severity Reaction Status Date / Time Penicillins Allergy Rash Verified 07/10/17 17:21 - Social History Does the pt smoke?: No Smoking Status: Former smoker Does the pt drink ETOH?: Yes Does the pt have substance abuse?: No - Immunizations Immunizations are current?: Yes - POLST Patient has POLST: No PD ED PE NORMAL - Vitals Vital signs reviewed: Yes (normal) - General General: Alert and oriented X 3 - HEENT HEENT: Atraumatic, PERRL, EOMI, Ears normal, Pharynx benign, Other (Fundi with sharp disc margins.) - Neck Neck: Supple, no meningeal sign, No adenopathy, No JVD - Cardiac Cardiac: RRR, No murmur - Respiratory Respiratory: No respiratory distress, Clear bilaterally - Abdomen Abdomen: Soft, Non tender - Back Back: No CVA TTP - Derm Derm: No rash - Extremities Extremities: No edema, No calf tenderness / cord - Neuro Neuro: Alert and oriented X 3, No motor deficit, No sensory deficit, Normal speech Results - Vitals Vitals: Oxygen O2 Source Room air Procedures - Regional nerve block Nerve block site: Other (greater occipital) Right / left: Both Nerve block anesthesia: Lidocaine 2% Nerve block aftercare: Moderate Anesthesia, Patient tolerated well, No complications PD MEDICAL DECISION MAKING - ED course Complexity details: reviewed old records, re-evaluated patient, considered differential, d/w patient ED course: The patient's presentation is significant for recurrent headache. Her presentation does not suggest meningitis, temporal arteritis, intracranial hemorrhage, or pseudotumor cerebri. Treatment in the included administration of a greater occipital nerve block bilaterally, and administration of Zofran 4 mg orally and Percocet 1 tablet orally. Her symptoms did improve with the above treatment. She is being discharged with prescriptions for Phenergan and for Percocet, 10 tablets. I discussed with her symptomatic treatment, outpatient follow-up, as well as potentially worrisome signs or symptoms that should prompt reevaluation in the emergency department. Departure - Departure Disposition: 01 Home, Self Care Clinical Impression: Head ache Qualifiers: Headache type: unspecified Headache chronicity pattern: acute headache Intractability: not intractable Qualified Code(s): R51 - Headache Condition: Stable Instructions: ED Cephalgia Unspecified Follow-Up: Jordon Cotto MD [Primary Care Provider] - Prescriptions: oxyCODONE/ACET 5/325 [Percocet 5 mg/325 mg] 1 tab PO Q4-6H PRN #10 tablet PRN Reason: Pain Promethazine [Phenergan] 25 - 50 mg PO Q6H PRN #10 tab PRN Reason: Nausea / Vomiting Comments: You can use Phenergan as prescribed if needed for nausea. You can use Percocet as prescribed if needed for recurrent headache. Follow-up with your primary physician and your neurologist as scheduled. Return to the emergency department if you develop increasing headache, persistent vomiting, or otherwise worsening symptoms. Discharge Date/Time: 07/10/17 18:35
[2017-07-10 18:36] VITALS: BP 120/82
== END 2017-07-10 18:35 | disposition home or self-care (01) ==
LOC: ED 17:03
DX: R51 Headache (principal); Z86.79 Personal history of other diseases of the circulatory system; Z87.891 Personal history of nicotine dependence
CPT/HCPCS: 64405; 99282; 99283; A9270; Q0162

== ENCOUNTER 2017-08-02 19:37 | Emergency (ER) | payer MEDICAID ==
[2017-08-02 20:21] VITALS: BP 110/70
--- NOTE | 2017-08-02 22:09 | ED Physician Documentation ---
PD HPI HEADACHE - Stated complaint Stated Complaint: WILKERSON - Chief complaint Chief Complaint: Neuro - History obtained from History obtained from: Patient - History of Present Illness Quality: Throbbing Associated symptoms: Nausea. No: Vomiting Improved by: Rest, Dark room, Quiet Worsened by: Light, Noise, Moving Similar symptoms before: Diagnosis (migraine WILKERSON) Recently seen: Emergency Dept - Additional information Additional information: 14th [facility] ED visit this year, c/o headache she says is typical for her migraine headache. she had 4 [facility] ED visits last month alone and 2 in May; most of her recent visits have been for headache, and she says that she usually responds to bilateral occipital injections, percocet in ED and a take-home pack of pain medication. She missed a recent neurology appointment, states she was in the ED with her son , "he was in DKA" (per patient). she scheduled next available neurology appointment, which won't be for another five months (December). As my previous note indicates, patient indicates other migraine medications have been ineffective, and toradol reportedly worsens her headache. Review of Systems Constitutional: reports: Reviewed and negative Eyes: reports: Photophobia Ears: reports: Reviewed and negative GI: reports: Nausea. denies: Abdominal Pain, Vomiting Neurologic: reports: Headache. 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 HEENT: None, Chronic sinusitis Psych: Depression, Anxiety Musculoskeletal: None Derm: None - Past Surgical History Past Surgical History: Yes Ortho: Spine surgery HEENT: Tonsil/Adenoidectomy - Present Medications Home Medications: Ambulatory Orders Medication Instructions Recorded Confirmed Bupropion HCl [Wellbutrin] 200 mg PO DAILY 03/29/16 07/10/17 traZODone [Desyrel] 100 mg PO QPM 07/19/16 07/10/17 Prazosin [Minipress] 2 mg PO DAILY 12/02/16 07/10/17 ARIPiprazole [Abilify] 5 mg PO DAILY 07/04/17 07/10/17 OXcarbazepine [Trileptal] 0 mg PO BID 07/10/17 07/10/17 Promethazine [Phenergan] 25 - 50 mg PO Q6H PRN #10 tab 07/10/17 oxyCODONE/ACET 5/325 [Percocet 5 1 tab PO Q4-6H PRN #10 tablet 07/10/17 mg/325 mg] - Allergies Allergies/Adverse Reactions: Allergies Allergy/AdvReac Type Severity Reaction Status Date / Time Penicillins Allergy Rash Verified 08/02/17 20:21 - Social History Does the pt smoke?: No Smoking Status: Former smoker Does the pt drink ETOH?: Yes Does the pt have substance abuse?: No - Immunizations Immunizations are current?: Yes - POLST Patient has POLST: No PD ED PE NORMAL - Vitals Vital signs reviewed: Yes - General General: Alert and oriented X 3, No acute distress, Well developed/nourished - HEENT HEENT: PERRL, EOMI, Moist mucous membranes - Neck Neck: Supple, no meningeal sign - Cardiac Cardiac: RRR, No murmur - Respiratory Respiratory: No respiratory distress, Clear bilaterally - Neuro Neuro: Alert and oriented X 3, 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 patient reported significant improvement in symptoms PD MEDICAL DECISION MAKING - ED course Complexity details: reviewed old records, re-evaluated patient, considered differential, d/w patient Departure - Departure Disposition: 01 Home, Self Care Clinical Impression: Migraine Qualifiers: Migraine type: unspecified Status migrainosus presence: without status migrainosus Intractability: intractable Qualified Code(s): G43.919 - Migraine, unspecified, intractable, without status migrainosus Condition: Good Instructions: ED Headache Migraine Discharge Date/Time: 08/03/17 00:34
[2017-08-02] MEDS ORDERED: BUPIVACAINE 0.5%-EPI 1:200000 PF 10 ML VIAL SUBQ STA (22:43)
[2017-08-02] MEDS ORDERED: oxyCODONE 5 MG TABLET PO STA (22:43)
[2017-08-02] MEDS ORDERED: oxyCODONE 5 MG TABLET ONE (23:00)
[2017-08-02] MEDS ORDERED: BUPIVACAINE 0.5%-EPI 1:200000 PF 30 ML VIAL ONE (23:00)
[2017-08-03] MEDS ORDERED: oxyCODONE/ACET 5/325 Prepack 4 PO STA (00:11)
[2017-08-03] MEDS ORDERED: ONDANSETRON ODT 4 MG Prepack 2 TL STA (00:11)
[2017-08-03] MEDS ORDERED: oxyCODONE/ACET 5/325 Prepack 4 PO ONE (00:19)
[2017-08-03] MEDS ORDERED: ONDANSETRON ODT 4 MG Prepack 2 TL ONE (00:19)
== END 2017-08-03 00:34 | disposition home or self-care (01) ==
LOC: ED 19:37
DX: G43.919 Migraine, unspecified, intractable, without status migrainosus (principal); Z87.891 Personal history of nicotine dependence
CPT/HCPCS: 64405; 99282; 99284; A9270

== ENCOUNTER 2017-08-26 14:13 | Emergency (ER) | payer MEDICAID ==
[2017-08-26] MEDS ORDERED: predniSONE 20 MG TABLET PO STA (15:00)
[2017-08-26] MEDS ORDERED: IPRATROPIUM/ALBUTEROL 3 ML NEB INH STA (15:00)
--- NOTE | 2017-08-26 15:03 | ED Physician Documentation ---
PD HPI URI - Stated complaint Stated Complaint: CONGESTION - Chief complaint Chief Complaint: Resp - History obtained from History obtained from: Patient, Family - History of Present Illness Timing - onset: How many weeks ago (3) Timing duration: Weeks (3) Timing details: Gradual onset Pain level max: 4 Pain level now: 4 Associated symptoms: Nasal congestion, Rhinorrhea, Sore throat, Productive cough (white sputum), Dyspnea (wheezing). No: Fever, Chills, Sweats, Swollen nodes, Chest pain Contributing factors: Sick contact (daughter with same) Improves by: Rest Worsened by: Other (lying down) Similar symptoms before: Diagnosis (treated from bronchitis with azithromycin, states not better) Recently seen: Clinic Review of Systems Ten Systems: 10 systems reviewed and negative Constitutional: denies: Fever, Chills Nose: reports: Rhinorrhea / runny nose, Congestion : denies: Now EGA Skin: denies: Rash Musculoskeletal: denies: Neck pain, Back pain Neurologic: denies: Headache PD PAST MEDICAL HISTORY - Past Medical History Past Medical History: Yes Cardiovascular: Murmur Respiratory: None Neuro: Headache/migraine Endocrine/Autoimmune: None GI: 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 HEENT: None, Chronic sinusitis Psych: Depression, Anxiety Musculoskeletal: None Derm: None - Past Surgical History Past Surgical History: Yes Ortho: Spine surgery HEENT: Tonsil/Adenoidectomy - Present Medications Home Medications: Ambulatory Orders Medication Instructions Recorded Confirmed Bupropion HCl [Wellbutrin] 200 mg PO DAILY 03/29/16 07/10/17 traZODone [Desyrel] 100 mg PO QPM 07/19/16 07/10/17 Prazosin [Minipress] 2 mg PO DAILY 12/02/16 07/10/17 ARIPiprazole [Abilify] 5 mg PO DAILY 07/04/17 07/10/17 OXcarbazepine [Trileptal] 0 mg PO BID 07/10/17 07/10/17 Promethazine [Phenergan] 25 - 50 mg PO Q6H PRN #10 tab 07/10/17 oxyCODONE/ACET 5/325 [Percocet 5 1 tab PO Q4-6H PRN #10 tablet 07/10/17 mg/325 mg] Albuterol Sulf [Ventolin Hfa 2 puffs INH Q4HR PRN #1 inhaler 08/26/17 Inhaler] Cetirizine HCl/Pseudoephedrine 1 each PO BID PRN #30 tab.er.12h 08/26/17 [Zyrtec-D Tablet] Prednisone 40 mg PO DAILY #10 tablet 08/26/17 Promethazine HCl/Codeine 5 ml PO Q6H PRN #60 ml 08/26/17 [Promethazine-Codeine Syrup] - Allergies Allergies/Adverse Reactions: Allergies Allergy/AdvReac Type Severity Reaction Status Date / Time Penicillins Allergy Rash Verified 08/02/17 20:21 - Social History Does the pt smoke?: No Smoking Status: Never smoker Does the pt drink ETOH?: Yes Does the pt have substance abuse?: No - Immunizations Immunizations are current?: Yes - POLST Patient has POLST: No PD ED PE NORMAL - Vitals Vital signs reviewed: Yes - General General: Alert and oriented X 3, No acute distress, Well developed/nourished - HEENT HEENT: PERRL, Ears normal, Moist mucous membranes, Pharynx benign, Other (clear rhinorrhea) - Neck Neck: Supple, no meningeal sign, No adenopathy - Cardiac Cardiac: RRR, Strong equal pulses - Respiratory Respiratory: No respiratory distress, Other (wheezing B) - Abdomen Abdomen: Soft, Non tender, Non distended - Derm Derm: Warm and dry, No rash - Neuro Neuro: Alert and oriented X 3 - Psych Psych: Normal mood, Normal affect Results - Vitals Vitals: Vital Signs - 24 hr 08/26/17 08/26/17 08/26/17 14:26 15:14 15:51 Temperature 36.4 C L 36.7 C Heart Rate 63 85 64 Respiratory 20 18 18 Rate Blood Pressure 116/79 126/83 H O2 Saturation 99 96 Oxygen O2 Source Room air - Rads (name of study) cxr Radiology: Prelim report reviewed, EMP read contemporaneously, See rad report ( Normal) PD MEDICAL DECISION MAKING - ED course Complexity details: reviewed results, re-evaluated patient, considered differential, d/w patient ED course: Patient is a 42-year-old female who presents to the emergency department with what appears to be a viral upper respiratory infection. No pneumonia on chest x -ray. No hypoxia. Feels better after steroids and breathing treatment. Will place on steroids, albuterol for home and continue supportive care. Patient counseled regarding signs and symptoms for which I believe and urgent re- evaluation would be necessary. Patient with good understanding of and agreement to plan and is comfortable going home at this time This document was made in part using voice recognition software. While efforts are made to proofread this document, sound alike and grammatical errors may occur. Departure - Departure Disposition: Home, Self Care Clinical Impression: Upper respiratory tract infection Qualifiers: URI type: unspecified viral URI Qualified Code(s): J06.9 - Acute upper respiratory infection, unspecified Condition: Good Instructions: ED URI Viral Follow-Up: Jordon Cotto MD [Primary Care Provider] - Within 1 week Prescriptions: Albuterol Sulf [Ventolin Hfa Inhaler] 2 puffs INH Q4HR PRN #1 inhaler PRN Reason: Wheezing Cetirizine HCl/Pseudoephedrine [Zyrtec-D Tablet] 1 each PO BID PRN #30 tab.er.12h PRN Reason: Nasal Congestion Prednisone 40 mg PO DAILY #10 tablet Promethazine HCl/Codeine [Promethazine-Codeine Syrup] 5 ml PO Q6H PRN #60 ml PRN Reason: Cough Comments: Your x-ray does not show any pneumonia today. We will continue the medications we have prescribed you today for home. Return if you worsen. Discharge Date/Time: 08/26/17 16:32
[2017-08-26] MEDS ORDERED: predniSONE 20 MG TABLET ONE (15:08)
[2017-08-26] MEDS ORDERED: IPRATROPIUM/ALBUTEROL 3 ML NEB INH ONE (15:17)
[2017-08-26 15:52] VITALS: BP 126/83
--- NOTE | 2017-08-26 16:08 | XRAY Preliminary Report ---
Exam: XR Chest 2 View PA/LAT IMPRESSION: Normal 2-view chest radiography. [facility] SITE ID: [id number]
--- NOTE | 2017-08-26 16:08 | XRAY Report ---
EXAM: CHEST RADIOGRAPHY EXAM DATE: 08/26/2017 03:39 PM. CLINICAL HISTORY: Cough. COMPARISON: Chest x-ray 10/30/2016. TECHNIQUE: 2 views. FINDINGS: Lungs/Pleura: No focal opacities evident. No pleural effusion. No pneumothorax. Normal volumes. Mediastinum: Heart and mediastinal contours are unremarkable. Other: None. IMPRESSION: Normal 2-view chest radiography. [facility] Referring Provider Line: [phone] SITE ID: [id number]
== END 2017-08-26 16:32 | disposition home or self-care (01) ==
LOC: ED 14:13
DX: J06.9 Acute upper respiratory infection, unspecified (principal)
CPT/HCPCS: 71020; 94640; 94664; 99283; J7512; J7620

== ENCOUNTER 2017-10-08 17:01 | Emergency (ER) | payer MEDICAID ==
[2017-10-08 17:12] VITALS: BP 120/74
[2017-10-08] MEDS ORDERED: oxyCOD/ACETAMIN 5 MG/325 MG TABLET PO STA (17:34)
--- NOTE | 2017-10-08 17:37 | ED Physician Documentation ---
PD HPI URI - Stated complaint Stated Complaint: HEADACHE - Chief complaint Chief Complaint: Neuro - History obtained from History obtained from: Patient, Family - History of Present Illness Timing - onset: Today Timing duration: Days (1) Timing details: Gradual onset Pain level max: 8 Pain level now: 8 Associated symptoms: No: Fever, Chills, Nasal congestion, Rhinorrhea, Dry cough Improves by: Medication (usually percocet helps) Worsened by: Other (light, noise) Similar symptoms before: Diagnosis (migraines) Recently seen: Not recently seen Review of Systems Constitutional: denies: Fever, Chills Ears: denies: Ear pain Nose: denies: Rhinorrhea / runny nose, Congestion Throat: denies: Sore throat Cardiac: denies: Chest pain / pressure Respiratory: denies: Cough, Wheezing GI: denies: Abdominal Pain, Nausea, Vomiting, Diarrhea Skin: denies: Rash Musculoskeletal: denies: Neck pain, Back pain Neurologic: reports: Headache. 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 : None HEENT: None, Chronic sinusitis Psych: Depression, Anxiety Musculoskeletal: None Derm: None - Past Surgical History Past Surgical History: Yes Ortho: Spine surgery HEENT: Tonsil/Adenoidectomy - Present Medications Home Medications: Ambulatory Orders Medication Instructions Recorded Confirmed traZODone [Desyrel] 100 mg PO QPM 07/19/16 10/08/17 Prazosin [Minipress] 2 mg PO DAILY 12/02/16 10/08/17 Oxycodone HCl/Acetaminophen 1 - 2 each PO Q6H PRN #4 tablet 10/08/17 [Percocet 5-325 mg Tablet] - Allergies Allergies/Adverse Reactions: Allergies Allergy/AdvReac Type Severity Reaction Status Date / Time Penicillins Allergy Rash Verified 08/02/17 20:21 - Social History Does the pt smoke?: No Smoking Status: Never smoker Does the pt drink ETOH?: Yes Does the pt have substance abuse?: No - Immunizations Immunizations are current?: Yes - POLST Patient has POLST: No PD ED PE NORMAL - Vitals Vital signs reviewed: Yes - General General: Alert and oriented X 3, No acute distress - HEENT HEENT: Atraumatic, PERRL, Ears normal, Moist mucous membranes, Pharynx benign - Neck Neck: Supple, no meningeal sign - Cardiac Cardiac: RRR, Strong equal pulses - Respiratory Respiratory: No respiratory distress, Clear bilaterally - Abdomen Abdomen: Soft, Non tender, Non distended - Derm Derm: Warm and dry, No rash - Neuro Neuro: Alert and oriented X 3, 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 Has not responded well to various methods of control in the past. States that normally works for her is to Percocet and then a few Percocet for home. Will follow up with her doctor for further evaluation and care. No evidence of subarachnoid hemorrhage, tumor, mass. Normal neurological exam. Ambulating normally. is driving her home. Patient counseled regarding signs and symptoms for which I believe and urgent re-evaluation would be necessary. Patient with good understanding of and agreement to plan and is comfortable going home at this time This document was made in part using voice recognition software. While efforts are made to proofread this document, sound alike and grammatical errors may occur. Departure - Departure Disposition: 01 Home, Self Care Clinical Impression: Migraine Qualifiers: Migraine type: unspecified Status migrainosus presence: without status migrainosus Intractability: not intractable Qualified Code(s): G43.909 - Migraine, unspecified, not intractable, without status migrainosus Condition: Good Instructions: ED Headache Migraine Follow-Up: Jordon Cotto MD [Primary Care Provider] - Within 1 week Prescriptions: Oxycodone HCl/Acetaminophen [Percocet 5-325 mg Tablet] 1 - 2 each PO Q6H PRN #4 tablet PRN Reason: pain Comments: Return if you worsen. Do not drink alcohol or drive while on narcotic pain medicine. Note that many narcotic pain relievers also contain tylenol/acetaminophen. Please ensure that your total dose of acetaminophen from all sources does not exceed 3 grams (3000mg) per day. You may constipated on this medication, take a stool softener such as "Colace" twice a day while you are on it. Also recommend a [id number] laxative such as senna or MiraLAX any day that you do not have a bowel movement. If you received narcotic pain medication in the emergency department, do not drive or operate machinery for the next 24 hours. Discharge Date/Time: 10/08/17 18:00
[2017-10-08] MEDS ORDERED: oxyCOD/ACETAMIN 5 MG/325 MG TABLET PO ONE (17:43)
[2017-10-08] MEDS ORDERED: oxyCODONE/ACET 5/325 Prepack 4 PO STA (18:09)
[2017-10-08] MEDS ORDERED: oxyCODONE/ACET 5/325 Prepack 4 PO ONE (18:15)
== END 2017-10-08 18:00 | disposition home or self-care (01) ==
LOC: ED 17:01
DX: G43.909 Migraine, unspecified, not intractable, without status migrainosus (principal)
CPT/HCPCS: 99283; A9270

== ENCOUNTER 2017-10-13 11:58 | Emergency (ER) | payer MEDICAID ==
[2017-10-13] MEDS ORDERED: ONDANSETRON ODT 4 MG TABLET TL STA (12:47)
[2017-10-13] MEDS ORDERED: oxyCOD/ACETAMIN 5 MG/325 MG TABLET PO STA (12:47)
--- NOTE | 2017-10-13 12:50 | ED Physician Documentation ---
History of Present Illness - Stated complaint Stated Complaint: HEADACHE,NAUSEA - Chief complaint Chief Complaint: Neuro - Additonal information Additional information: hx from pt 42 f hx migraines for many years last seen 6 days ago take propanolol and topiramate at home states imitrex toradol compazine benadyrl etc don't work for her [employer] same as her prior migraines throbbing frontal no fever no numbness weakness denies CO exposure also a cough for 4 months seen PMD for same and had xrays denies preg feet tingle but that might be due to her new job which req standing all day Review of Systems Constitutional: denies: Fever, Chills Eyes: denies: Photophobia Respiratory: reports: Cough GI: reports: Nausea. denies: Vomiting : denies: Now EGA Neurologic: reports: Headache. 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 : None HEENT: None, Chronic sinusitis Psych: Depression, Anxiety Musculoskeletal: None Derm: None - Past Surgical History Past Surgical History: Yes Ortho: Spine surgery HEENT: Tonsil/Adenoidectomy - Present Medications Home Medications: Ambulatory Orders Medication Instructions Recorded Confirmed traZODone [Desyrel] 100 mg PO QPM 07/19/16 10/08/17 Prazosin [Minipress] 2 mg PO DAILY 12/02/16 10/08/17 Albuterol Sulfate [Proair Hfa 2 puffs INH Q4H PRN #1 inhaler 10/13/17 Inhaler] Varenicline Tartrate [Chantix] 0.5 mg PO DAILY 10/13/17 10/13/17 - Allergies Allergies/Adverse Reactions: Allergies Allergy/AdvReac Type Severity Reaction Status Date / Time Penicillins Allergy Rash Verified 10/13/17 12:12 - Social History Does the pt smoke?: No Smoking Status: Former smoker Does the pt drink ETOH?: Yes Does the pt have substance abuse?: No - Immunizations Immunizations are current?: Yes - POLST Patient has POLST: No PD ED PE NORMAL - Vitals Vital signs reviewed: Yes - General General: Alert and oriented X 3 - HEENT HEENT: PERRL, EOMI - Neck Neck: Supple, no meningeal sign - Cardiac Cardiac: RRR - Respiratory Respiratory: No respiratory distress. No: Clear bilaterally (nicole coarse BS and wheezing - cough X 4 months smoker already had xrays per pt) - Derm Derm: Normal color - Neuro Neuro: Alert and oriented X 3, bark tanner 2-12 intact, No motor deficit, No sensory deficit Results - Vitals Vitals: Vital Signs - 24 hr 10/13/17 12:05 Temperature 36.1 C L Heart Rate 50 L Respiratory 16 Rate Blood Pressure 107/73 O2 Saturation 99 Oxygen O2 Source Room air PD MEDICAL DECISION MAKING - ED course ED course: pt req rx for percocet but she just got one 6 days ago so I advised unable to do that I recf IVF toradol benadryl compazine but she states that never works, only percocet will work so gave 1 percocet and zofran and will dc with [facility]I for wheezing Departure - Departure Disposition: 01 Home, Self Care Clinical Impression: Migraine Qualifiers: Migraine type: unspecified Status migrainosus presence: without status migrainosus Intractability: not intractable Qualified Code(s): G43.909 - Migraine, unspecified, not intractable, without status migrainosus RAD (reactive airway disease) Qualifiers: Asthma severity: unspecified severity Asthma persistence: unspecified Asthma complication type: with acute exacerbation Qualified Code(s): J45.901 - Unspecified asthma with (acute) exacerbation Condition: Good Instructions: ED Headache Migraine, ED Inhaler Use Prescriptions: Albuterol Sulfate [Proair Hfa Inhaler] 2 puffs INH Q4H PRN #1 inhaler PRN Reason: Shortness Of Air/Wheezing Comments: Use the inhaler I prescribed 2 puffs every 6 hr for the cough. Please follow up with your PMD for a recheck No driving for 8 hr after the medications given in the ER today Forms: Activity restrictions
[2017-10-13] MEDS ORDERED: ONDANSETRON ODT 4 MG TABLET ONE (13:01)
[2017-10-13] MEDS ORDERED: oxyCOD/ACETAMIN 5 MG/325 MG TABLET PO ONE (13:01)
[2017-10-13 13:02] VITALS: BP 111/67
== END 2017-10-13 13:03 | disposition home or self-care (01) ==
LOC: ED 11:58
DX: G43.909 Migraine, unspecified, not intractable, without status migrainosus (principal); J45.901 Unspecified asthma with (acute) exacerbation; Z87.891 Personal history of nicotine dependence
CPT/HCPCS: 99283; A9270; Q0162

== ENCOUNTER 2017-11-15 12:24 | Emergency (ER) | payer MEDICAID ==
[2017-11-15] MEDS ORDERED: ONDANSETRON 4 MG/2 ML VIAL IVP STA (12:47)
[2017-11-15] MEDS ORDERED: SODIUM CHLORIDE 0.9% 1,000 ML IV ONE (12:47)
[2017-11-15] MEDS ORDERED: diphenhydrAMINE INJ 50 MG/ML VIAL IVP STA (12:48)
[2017-11-15] MEDS ORDERED: KETOROLAC 60 MG/2 ML VIAL IVP STA (12:48)
--- NOTE | 2017-11-15 12:51 | ED Physician Documentation ---
History of Present Illness - Stated complaint Stated Complaint: VOMITING - Chief complaint Chief Complaint: Neuro - History obtained from History obtained from: Patient - History of Present Illness Timing: How many weeks ago (2) Pain level max: 6 Pain level now: 5 Improved by: nothing Worsened by: eating - Additonal information Additional information: Patient is a 42-year-old female who has had intermittent right upper quadrant/ epigastric abdominal pain for the past several weeks. This is been accompanied by nausea and vomiting. Does not seem to change based upon her diet. Nothing seems to help her symptoms. It is worse with eating and drinking. She also states that she has had her usual headache for the past 2 days. Unrelieved with Motrin and Tylenol at home. She also states that she quit smoking approximately 6 weeks ago. Denies any fevers. No travel. No recent surgery. No recent medication changes. 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 HEENT: None, Chronic sinusitis Psych: Depression, Anxiety Musculoskeletal: None Derm: None - Past Surgical History Past Surgical History: Yes Ortho: Spine surgery HEENT: Tonsil/Adenoidectomy - Present Medications Home Medications: Ambulatory Orders Medication Instructions Recorded Confirmed traZODone [Desyrel] 100 mg PO QPM 07/19/16 10/08/17 Prazosin [Minipress] 2 mg PO DAILY 12/02/16 10/08/17 Albuterol Sulfate [Proair Hfa 2 puffs INH Q4H PRN #1 inhaler 10/13/17 Inhaler] Varenicline Tartrate [Chantix] 0.5 mg PO DAILY 10/13/17 10/13/17 Ondansetron Odt [Zofran] 4 mg TL Q6H PRN #10 tablet 11/15/17 - Allergies Allergies/Adverse Reactions: Allergies Allergy/AdvReac Type Severity Reaction Status Date / Time Penicillins Allergy Rash Verified 10/13/17 12:12 - Social History Does the pt smoke?: No Smoking Status: Never smoker Does the pt drink ETOH?: Yes Does the pt have substance abuse?: No - Immunizations Immunizations are current?: Yes - POLST Patient has POLST: No PD ED PE NORMAL - Vitals Vital signs reviewed: Yes - General General: Alert and oriented X 3, No acute distress - HEENT HEENT: PERRL, EOMI, Moist mucous membranes, Pharynx benign - Neck Neck: Supple, no meningeal sign - Cardiac Cardiac: RRR, Strong equal pulses - Respiratory Respiratory: No respiratory distress, Clear bilaterally - Abdomen Abdomen: Soft, Other (TTP epigastric and RUQ. equivocal santiago's sign) - Derm Derm: Warm and dry, No rash - Extremities Extremities: No edema - Neuro Neuro: Alert and oriented X 3 - Psych Psych: Normal mood, Normal affect Results - Vitals Vitals: Vital Signs - 24 hr 11/15/17 11/15/17 12:27 14:31 Temperature 36.5 C Heart Rate 42 L 38 L Respiratory 16 12 Rate Blood Pressure 116/67 110/73 O2 Saturation 100 100 Oxygen O2 Source Room air - Labs Labs: Laboratory Tests 11/15/17 11/15/17 11/15/17 12:40 12:54 12:54 WBC 6.6 RBC 4.47 Hgb 14.7 Hct 42.2 MCV 94.3 MCH 32.8 H MCHC 34.8 RDW 12.2 Plt Count 182 MPV 9.3 Neut # 4.0 Lymph # 2.1 Hill # 0.3 Eos # 0.1 Baso # 0.1 Absolute Nucleated RBC 0.00 Nucleated RBC % 0.0 Sodium 135 Potassium 3.7 Chloride 106 Carbon Dioxide 21 Anion Gap 8.0 BUN 21 H Creatinine 0.9 Estimated GFR (MDRD) 69 L Glucose 94 Calcium 9.9 Total Bilirubin 0.6 AST 13 ALT 14 Alkaline Phosphatase 57 Total Protein 6.9 Albumin 4.3 Globulin 2.6 Albumin/Globulin Ratio 1.7 Lipase 25 Urine Color YELLOW Urine Clarity CLEAR Urine pH 6.0 Ur Specific [place] >=1.030 H Urine Protein NEGATIVE Urine Glucose (UA) NEGATIVE Urine Ketones NEGATIVE Urine Occult Blood NEGATIVE Urine Nitrite NEGATIVE Urine Bilirubin NEGATIVE Urine Urobilinogen 0.2 (NORMAL) Ur Leukocyte Esterase NEGATIVE Ur Microscopic Review NOT INDICATED Urine Culture Comments NOT INDICATED Urine HCG, Qual NEGATIVE - Rads (name of study) RUQ US Radiology: Prelim report reviewed, EMP read contemporaneously, See rad report ( No cholelithiasis or nicole. dilitation. Incidental hepatic hemangioma. ) PD MEDICAL DECISION MAKING - ED course Complexity details: reviewed old records, reviewed results, re-evaluated patient , considered differential, d/w patient ED course: Patient is a 42-year-old female who presents to the emergency department with what appears to be her usual migraine headache. Was given Compazine and Benadryl, headache improved. She is tolerating p.o. without difficulty, requests Zofran for home. Negative ultrasound, there may have biliary dysfunction and may benefit from a HIDA scan as an outpatient. May also have gastritis versus ulcers and may benefit from endoscopy. Will have her follow- up with her PCP for further evaluation and care. Patient counseled regarding signs and symptoms for which I believe and urgent re-evaluation would be necessary. Patient with good understanding of and agreement to plan and is comfortable going home at this time This document was made in part using voice recognition software. While efforts are made to proofread this document, sound alike and grammatical errors may occur. Departure - Departure Disposition: Home, Self Care Clinical Impression: Migraine Qualifiers: Migraine type: unspecified Status migrainosus presence: without status migrainosus Intractability: not intractable Qualified Code(s): G43.909 - Migraine, unspecified, not intractable, without status migrainosus Vomiting Qualifiers: Vomiting type: unspecified Vomiting Intractability: non-intractable Nausea presence: with nausea Qualified Code(s): R11.2 - Nausea with vomiting, unspecified Condition: Good Instructions: ED Headache Migraine, ED Nausea Vomiting Follow-Up: Jordon Cotto MD [Primary Care Provider] - Within 1 week Prescriptions: Ondansetron Odt [Zofran] 4 mg TL Q6H PRN #10 tablet PRN Reason: Nausea / Vomiting Comments: Return if you worsen. You should have a HIDA scan and possibly an endoscopy for further evaluation of your symptoms.
[2017-11-15 12:55] LABS: BILIRUBIN,URINE NEGATIVE (NEGATIVE)
[2017-11-15 12:59] LABS: BASOPHILS # (AUTO) 0.1 10^3/uL (0.0-0.1); BASOPHILS % (AUTO) 0.8 %; EOSINOPHILS # (AUTO) 0.1 10^3/uL (0.0-0.7); EOSINOPHILS % (AUTO) 2.2 %; HCT - HEMATOCRIT 42.2 % (37.0-47.0); HGB - HEMOGLOBIN 14.7 g/dL (12.0-16.0); LYMPHOCYTES # (AUTO) 2.1 10^3/uL (1.5-3.5); LYMPHOCYTES % (AUTO) 32.3 %; MEAN CORPUSCULAR HEMOGLOBIN 32.8 pg (27.0-31.0); MEAN CORPUSCULAR HGB CONC 34.8 g/dL (32.0-36.0); MEAN CORPUSCULAR VOLUME 94.3 fL (81.0-99.0); MEAN PLATELET VOLUME 9.3 fL (7.9-10.8); MONOCYTES # (AUTO) 0.3 10^3/uL (0.0-1.0); NEUTROPHILS % (AUTO) 60.7 %; RED BLOOD COUNT 4.47 10^6/uL (4.20-5.40); RED CELL DISTRIBUTION WIDTH 12.2 % (12.0-15.0); UNCORRECTED WHITE BLOOD COUNT 6.6 x10^3/uL; WHITE BLOOD COUNT 6.6 x10^3/uL (4.8-10.8)
[2017-11-15 12:59] LABS: HCG UR QUAL NEGATIVE; UA CHARGE (STRIP ONLY) YES; UR CULTURE IF IND NOT INDICATED
[2017-11-15] MEDS: PROCHLORPERAZINE 10 MG/2 ML VIAL IVP STA ×2 (13:00→13:01)
[2017-11-15 13:11] LABS: ALBUMIN/GLOBULIN RATIO 1.7 (1.0-2.2); BILIRUBIN,TOTAL 0.6 mg/dL (0.2-1.0); CALCIUM 9.9 mg/dL (8.5-10.3); CREATININE 0.9 mg/dL (0.4-1.0); POTASSIUM 3.7 mmol/L (3.5-5.0); TOTAL PROTEIN 6.9 g/dL (6.7-8.2)
[2017-11-15] MEDS ORDERED: oxyCOD/ACETAMIN 5 MG/325 MG TABLET PO STA (14:31)
[2017-11-15 14:32] VITALS: BP 110/73
--- NOTE | 2017-11-16 16:31 | Ultrasound Report ---
DATE OF SERVICE: 11/15/2017 RIGHT UPPER QUADRANT ULTRASOUND: 11/15/2017 CLINICAL INDICATION: Pain, vomiting. TECHNIQUE: Real-time scanning was performed with insurance account representative static images obtained. FINDINGS: The liver measures 16.3 cm. There is an echogenic nodule measuring 2.9 cm in the posterio r right lobe, compatible with a hemangioma. No suspicious solid hepatic lesion or intrahepatic biliary dilat ation is seen. The common bile duct measures 6 mm. The gallbladder is normal. The right kidney measures 11. 2 cm, and demonstrates no hydronephrosis. No free fluid is present. IMPRESSION: No evidence of cholelithiasis or biliary obstruction. Incidental hemangioma in the post erior right lobe of the liver. TD: 11/15/2017 19:01
== END 2017-11-15 14:46 | disposition home or self-care (01) ==
LOC: ED 12:24
DX: G43.909 Migraine, unspecified, not intractable, without status migrainosus (principal); R11.2 Nausea with vomiting, unspecified
CPT/HCPCS: 36415; 76705; 80053; 81003; 81025; 83690; 85025; 96361; 96374; 99284; A9270; 81001; 87086

== ENCOUNTER 2017-12-26 09:24 | Emergency (ER) | payer MEDICAID ==
[2017-12-26 10:03] LABS: BILIRUBIN,URINE NEGATIVE (NEGATIVE); GLUCOSE, URINE (UA) NEGATIVE (NEGATIVE); KETONES,URINE (UA) NEGATIVE (NEGATIVE); LEUKOCYTE ESTERASE, URINE NEGATIVE (NEGATIVE); NITRITE,URINE NEGATIVE (NEGATIVE); OCCULT BLOOD,URINE NEGATIVE (NEGATIVE); PH,URINE 7.5 PH (5.0-7.5); PROTEIN,URINE NEGATIVE (NEGATIVE); UROBILINOGEN,URINE 0.2 (NORMAL) E.U./dL (NORMAL)
[2017-12-26 10:06] LABS: CLARITY,URINE CLEAR (CLEAR); HCG UR QUAL NEGATIVE
[2017-12-26] MEDS ORDERED: traMADol 50 MG TABLET PO STA (10:15)
[2017-12-26] MEDS ORDERED: LIDOCAINE PATCH 5% TOP STA (10:15)
--- NOTE | 2017-12-26 10:21 | ED Physician Documentation ---
History of Present Illness - Stated complaint Stated Complaint: BACK PX - Chief complaint Chief Complaint: Back Pain - Additonal information Additional information: hx from pt 42 f no injury complains of nicole mid back pain with moving denies fever denies CP denies AP denies cough denies NVD denies urinary sx denies numbness weakness denies recent dental work or surgery denies IV meds drugs took motrin s relief does have BASIL and had 15+ ER visits to [facility] in 2017 Review of Systems Constitutional: denies: Fever Throat: denies: Sore throat Cardiac: denies: Chest pain / pressure Respiratory: denies: Dyspnea GI: denies: Abdominal Pain, Nausea, Vomiting : denies: Incontinent, Now EGA Musculoskeletal: reports: Back pain Endocrine: denies: Easy bruising / bleeding Immunocompromised: denies: Immunocompromised PD PAST MEDICAL HISTORY - Past Medical History Past Medical History: Yes Cardiovascular: Murmur Respiratory: None Neuro: Headache/migraine Endocrine/Autoimmune: None GI: None 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 : None HEENT: None, Chronic sinusitis Psych: Depression, Anxiety Musculoskeletal: None Derm: None - Past Surgical History Past Surgical History: Yes Ortho: Spine surgery HEENT: Tonsil/Adenoidectomy - Present Medications Home Medications: Ambulatory Orders Medication Instructions Recorded Confirmed traZODone [Desyrel] 100 mg PO QPM 07/19/16 10/08/17 Prazosin [Minipress] 2 mg PO DAILY 12/02/16 10/08/17 Carisoprodol [Soma] 350 mg PO Q8H PRN #15 tablet 12/26/17 Ibuprofen [Motrin] 400 mg PO Q6H PRN #30 tablet 12/26/17 Lidocaine Patch 5% [Lidoderm Patch] 1 each TOP DAILY PRN #10 patch 12/26/17 Varenicline Tartrate [Chantix] 1 mg PO BID 12/26/17 buPROPion [Wellbutrin Sr] 100 mg PO BID 12/26/17 - Allergies Allergies/Adverse Reactions: Allergies Allergy/AdvReac Type Severity Reaction Status Date / Time Penicillins Allergy Rash Verified 12/26/17 09:32 - Social History Does the pt smoke?: No Smoking Status: Never smoker Does the pt drink ETOH?: Yes Does the pt have substance abuse?: No - Immunizations Immunizations are current?: Yes - POLST Patient has POLST: No PD ED PE NORMAL - Vitals Vital signs reviewed: Yes - General General: Alert and oriented X 3 - HEENT HEENT: PERRL - Neck Neck: Supple, no meningeal sign - Cardiac Cardiac: RRR - Respiratory Respiratory: No respiratory distress, Clear bilaterally - Abdomen Abdomen: Soft, Non tender, Other ( no pulsatile mass) - Back Back: No spinal TTP, Other (nicole soft tissue TTP low thoracic region with limited ROM ameena extension, no focal bony rendess swelling or TTP) - Derm Derm: Normal color - Neuro Neuro: Alert and oriented X 3, No motor deficit, No sensory deficit, Other (hip flex knee ext foot dorsi planta and great toe 5/5, denies saddle anesthesia, nl sensation to nicole LE, patellar DTR 3/4 nicole, no clonus, neg SLR) Results - Vitals Vitals: Vital Signs - 24 hr 12/26/17 09:27 Temperature 36.4 C L Heart Rate 53 L Respiratory 18 Rate Blood Pressure 104/59 L O2 Saturation 97 Oxygen O2 Source Room air - Labs Labs: Laboratory Tests 12/26/17 12/26/17 09:35 09:35 Urine Color YELLOW Urine Clarity CLEAR Urine pH 7.5 Ur Specific [place] 1.020 1.020 Urine Protein NEGATIVE Urine Glucose (UA) NEGATIVE Urine Ketones NEGATIVE Urine Occult Blood NEGATIVE Urine Nitrite NEGATIVE Urine Bilirubin NEGATIVE Urine Urobilinogen 0.2 (NORMAL) Ur Leukocyte Esterase NEGATIVE Ur Microscopic Review NOT INDICATED Urine Culture Comments NOT INDICATED Urine HCG, Qual NEGATIVE PD MEDICAL DECISION MAKING - ED course ED course: 42 female with muscular back pain and no red flags, will tx conservatively, BASIL and prior narcotic use so will avoid narcotics, gave a tramadol in ER for acute pain but will just rx motrin, some , and lido patches Departure - Departure Disposition: 01 Home, Self Care Clinical Impression: Back pain Qualifiers: Back pain location: low back pain Chronicity: acute Back pain laterality: bilateral Sciatica presence: without sciatica Qualified Code(s): M54.5 - Low back pain Condition: Good Instructions: ED Neck Back Pain General Prescriptions: Carisoprodol [Soma] 350 mg PO Q8H PRN #15 tablet PRN Reason: muscle spasm Ibuprofen [Motrin] 400 mg PO Q6H PRN #30 tablet PRN Reason: Pain Lidocaine Patch 5% [Lidoderm Patch] 1 each TOP DAILY PRN #10 patch PRN Reason: Pain
[2017-12-26 10:46] VITALS: BP 110/76
== END 2017-12-26 10:42 | disposition home or self-care (01) ==
LOC: ED 09:24
DX: M54.5 Low back pain (principal)
CPT/HCPCS: 81003; 81025; 99283; A9270; 81001; 87086

== ENCOUNTER 2017-12-27 09:22 | Emergency (ER) | payer MEDICAID ==
--- NOTE | 2017-12-27 11:28 | ED Physician Documentation ---
History of Present Illness - Stated complaint Stated Complaint: BACK PX - Chief complaint Chief Complaint: General - Additonal information Additional information: hx from pt 42 female seen yesterday for insidious onset back pain no red flags ttp and worse with movement c/w muscular etiology rx soma lido patches - pt states insurnace would not fill - harmacy did not call me in ER nor PMD pt states she was told to come back to the ER for new rx no chnage of sx except now nauseated Review of Systems Constitutional: denies: Fever, Chills Throat: denies: Sore throat Cardiac: denies: Chest pain / pressure Respiratory: denies: Dyspnea GI: reports: Nausea. denies: Abdominal Pain : denies: Now EGA (neg HCG yesterday) Musculoskeletal: reports: Back pain Neurologic: denies: Focal weakness, Numbness PD PAST MEDICAL HISTORY - Past Medical History Past Medical History: Yes Cardiovascular: Murmur Respiratory: None Neuro: Headache/migraine Endocrine/Autoimmune: None GI: None FIELD SPEC: None : None HEENT: None, Chronic sinusitis Psych: Depression, Anxiety Musculoskeletal: None Derm: None - Past Surgical History Past Surgical History: Yes Ortho: Spine surgery HEENT: Tonsil/Adenoidectomy - Present Medications Home Medications: Ambulatory Orders Medication Instructions Recorded Confirmed traZODone [Desyrel] 100 mg PO QPM 07/19/16 10/08/17 Prazosin [Minipress] 2 mg PO DAILY 12/02/16 10/08/17 Carisoprodol [Soma] 350 mg PO Q8H PRN #15 tablet 12/26/17 Ibuprofen [Motrin] 400 mg PO Q6H PRN #30 tablet 12/26/17 Lidocaine Patch 5% [Lidoderm Patch] 1 each TOP DAILY PRN #10 patch 12/26/17 Varenicline Tartrate [Chantix] 1 mg PO BID 12/26/17 buPROPion [Wellbutrin Sr] 100 mg PO BID 12/26/17 diazePAM [Valium] 5 mg PO Q8H PRN #12 tablet 12/27/17 - Allergies Allergies/Adverse Reactions: Allergies Allergy/AdvReac Type Severity Reaction Status Date / Time Penicillins Allergy Rash Verified 12/26/17 09:32 - Social History Does the pt smoke?: No Smoking Status: Never smoker Does the pt drink ETOH?: Yes Does the pt have substance abuse?: No - Immunizations Immunizations are current?: Yes - POLST Patient has POLST: No PD ED PE NORMAL - Vitals Vital signs reviewed: Yes - General General: Alert and oriented X 3 - Neck Neck: Supple, no meningeal sign - Cardiac Cardiac: RRR - Respiratory Respiratory: No respiratory distress, Clear bilaterally - Abdomen Abdomen: Soft, Non tender, Other (no pulsatile mass) - Back Back: Other (as before diffuse ST TTP and limited ROM, no focal bony redness swelling or TTP) - Derm Derm: Warm and dry - Neuro Neuro: Alert and oriented X 3, converting supervisor 2-12 intact, No motor deficit, No sensory deficit, Normal speech, Other (hip flex knee ext foot dorsi plantar great to ext 5/5, nl sensation, denies saddle anesthesia, neg SLR, patellar DTR 3/4 nicole, no clonus) Results - Vitals Vitals: Vital Signs - 24 hr 12/27/17 09:33 Temperature 36.3 C L Heart Rate 77 Respiratory 12 Rate Blood Pressure 119/77 O2 Saturation 97 Oxygen O2 Source Room air Departure - Departure Disposition: 01 Home, Self Care Clinical Impression: Back pain Qualifiers: Back pain location: back pain in other location Chronicity: acute Qualified Code(s): M54.9 - Dorsalgia, unspecified Condition: Good Instructions: ED Neck Back Pain General Prescriptions: diazePAM [Valium] 5 mg PO Q8H PRN #12 tablet PRN Reason: Spasms Comments: The motrin and lidocaine patches are available over the counter. I changed the muscle relaxant to valium If that is not covered have the pharmacist call me in the ER before 6 PM rather than get charged for another ER visit to change meds
[2017-12-27 11:39] VITALS: BP 125/79
== END 2017-12-27 11:49 | disposition home or self-care (01) ==
LOC: ED 09:22
DX: M54.9 Dorsalgia, unspecified (principal)
CPT/HCPCS: 99283

== ENCOUNTER 2018-01-08 17:07 | Emergency (ER) | payer MEDICAID ==
[2018-01-08 18:14] LABS: BILIRUBIN,URINE NEGATIVE (NEGATIVE); GLUCOSE, URINE (UA) NEGATIVE (NEGATIVE); KETONES,URINE (UA) NEGATIVE (NEGATIVE); LEUKOCYTE ESTERASE, URINE NEGATIVE (NEGATIVE); NITRITE,URINE NEGATIVE (NEGATIVE); OCCULT BLOOD,URINE NEGATIVE (NEGATIVE); PH,URINE 6.5 PH (5.0-7.5); PROTEIN,URINE NEGATIVE (NEGATIVE); UROBILINOGEN,URINE 1 (NORMAL) E.U./dL (NORMAL)
[2018-01-08 18:15] LABS: CLARITY,URINE CLEAR (CLEAR); HCG UR QUAL NEGATIVE
[2018-01-08 18:33] LABS: BASOPHILS # (AUTO) 0.1 10^3/uL (0.0-0.1); BASOPHILS % (AUTO) 0.9 %; EOSINOPHILS # (AUTO) 0.7 10^3/uL (0.0-0.7); EOSINOPHILS % (AUTO) 7.8 %; HGB - HEMOGLOBIN 14.1 g/dL (12.0-16.0); LYMPHOCYTES # (AUTO) 2.4 10^3/uL (1.5-3.5); MEAN CORPUSCULAR HEMOGLOBIN 30.9 pg (27.0-31.0); MEAN CORPUSCULAR HGB CONC 33.6 g/dL (32.0-36.0); MEAN CORPUSCULAR VOLUME 92.1 fL (81.0-99.0); MEAN PLATELET VOLUME 8.4 fL (7.9-10.8); MONOCYTES # (AUTO) 0.4 10^3/uL (0.0-1.0); MONOCYTES % (AUTO) 4.3 %; NEUTROPHILS # (AUTO) 5.2 10^3/uL (1.5-6.6); PLT - PLATELET COUNT 192 10^3/uL (130-450); RED BLOOD COUNT 4.57 10^6/uL (4.20-5.40); RED CELL DISTRIBUTION WIDTH 12.1 % (12.0-15.0); WHITE BLOOD COUNT 8.8 x10^3/uL (4.8-10.8)
--- NOTE | 2018-01-08 18:40 | ED Physician Documentation ---
PD HPI ABD PAIN - Stated complaint Stated Complaint: ABD PAIN - Chief complaint Chief Complaint: Abd Pain - History obtained from History obtained from: Patient - History of Present Illness Timing - onset: Today, Last night Timing - duration: Hours Timing - details: Abrupt onset, Still present Quality: Aching, Sharp, Pain Location: RUQ, Epigastric Radiation: Upper back. No: Chest Associated symptoms: Nausea, Vomiting. No: Fever, Hematemesis, Diarrhea Similar symptoms before: No diagnosis (normal u/s recent; to get hida scan this week.) Review of Systems Constitutional: denies: Fever, Chills Nose: denies: Rhinorrhea / runny nose, Congestion Throat: denies: Sore throat Cardiac: denies: Chest pain / pressure, Palpitations Respiratory: denies: Dyspnea, Cough GI: reports: Abdominal Pain, Nausea, Vomiting. 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 : None HEENT: None, Chronic sinusitis Psych: Depression, Anxiety Musculoskeletal: None Derm: None - Past Surgical History Past Surgical History: Yes Ortho: Spine surgery HEENT: Tonsil/Adenoidectomy - Present Medications Home Medications: Ambulatory Orders Medication Instructions Recorded Confirmed traZODone [Desyrel] 100 mg PO QPM 07/19/16 10/08/17 Prazosin [Minipress] 2 mg PO DAILY 12/02/16 10/08/17 Varenicline Tartrate [Chantix] 1 mg PO BID 12/26/17 buPROPion [Wellbutrin Sr] 100 mg PO BID 12/26/17 Ondansetron Odt [Zofran] 4 mg TL Q6H PRN #10 tablet 12/27/17 Dicyclomine [Bentyl] 20 mg PO QID PRN #20 capsule 01/08/18 HYDROcod/ACETAM 5/325 [[place] 5/325] 1 tab PO Q6H PRN #20 tablet 01/08/18 Ondansetron HCl [Zofran] 4 mg PO Q6H PRN #20 tablet 01/08/18 Sucralfate 1 gm PO QID #40 tablet 01/08/18 - Allergies Allergies/Adverse Reactions: Allergies Allergy/AdvReac Type Severity Reaction Status Date / Time Penicillins Allergy Rash Verified 01/08/18 17:27 - Social History Does the pt smoke?: No Smoking Status: Former smoker Does the pt drink ETOH?: Yes Does the pt have substance abuse?: No - Immunizations Immunizations are current?: Yes - POLST Patient has POLST: No PD ED PE NORMAL - Vitals Vital signs reviewed: Yes - General General: Alert and oriented X 3, Well developed/nourished, Other (in marked pain ) - HEENT HEENT: Pharynx benign - Neck Neck: Supple, no meningeal sign, No adenopathy - Cardiac Cardiac: RRR, No murmur - Respiratory Respiratory: Clear bilaterally - Abdomen Abdomen: Normal bowel sounds, Soft, Non distended, No organomegaly, Other ( tender epigastric to ruq with guarding and local tenseness) - Female Female : Deferred - Rectal Rectal: Deferred - Back Back: No CVA TTP Results - Vitals Vitals: Oxygen O2 Source Room air - Labs Labs: Laboratory Tests 01/08/18 01/08/18 01/08/18 18:00 18:26 18:26 WBC 8.8 RBC 4.57 Hgb 14.1 Hct 42.1 MCV 92.1 MCH 30.9 MCHC 33.6 RDW 12.1 Plt Count 192 MPV 8.4 Neut # 5.2 Lymph # 2.4 [place] # 0.4 Eos # 0.7 Baso # 0.1 Absolute Nucleated RBC 0.00 Nucleated RBC % 0.0 Sodium 137 Potassium 4.1 Chloride 104 Carbon Dioxide 25 Anion Gap 8.0 BUN 13 Creatinine 0.8 Estimated GFR (MDRD) 79 L Glucose 90 Calcium 9.4 Total Bilirubin 0.5 AST 16 ALT 23 Alkaline Phosphatase 53 Total Protein 6.8 Albumin 4.2 Globulin 2.6 Albumin/Globulin Ratio 1.6 Lipase 22 Urine Color YELLOW Urine Clarity CLEAR Urine pH 6.5 Ur Specific [place] 1.015 Urine Protein NEGATIVE Urine Glucose (UA) NEGATIVE Urine Ketones NEGATIVE Urine Occult Blood NEGATIVE Urine Nitrite NEGATIVE Urine Bilirubin NEGATIVE Urine Urobilinogen 1 (NORMAL) Ur Leukocyte Esterase NEGATIVE Ur Microscopic Review NOT INDICATED Urine Culture Comments NOT INDICATED Urine HCG, Qual NEGATIVE PD MEDICAL DECISION MAKING - ED course Complexity details: considered differential (possible biliary colic without stones in the past and is getting hida scan soon. labs are good.), d/w patient Departure - Departure Disposition: 01 Home, Self Care Clinical Impression: Abdominal pain Qualifiers: Abdominal location: right upper quadrant Qualified Code(s): R10.11 - Right upper quadrant pain Condition: Stable Record reviewed to determine appropriate education?: Yes Instructions: Abdominal Pain Prescriptions: Dicyclomine [Bentyl] 20 mg PO QID PRN #20 capsule PRN Reason: Spasms HYDROcod/ACETAM 5/325 [[place] 5/325] 1 tab PO Q6H PRN #20 tablet PRN Reason: Pain Ondansetron HCl [Zofran] 4 mg PO Q6H PRN #20 tablet PRN Reason: Nausea / Vomiting Sucralfate 1 gm PO QID #40 tablet Comments: Use sucralfate 3 or 4 times a day to coat the stomach and duodenum in case this is an irritation of those rather than gallbladder irritation. For intestinal and gallbladder spasming, use Bentyl 3 or 4 times a day as needed. Ondansetron if needed for nausea. Add Tylenol or hydrocodone if needed for pain. Follow- up as planned for the HIDA scan and further evaluation of the stomach. Discharge Date/Time: 01/08/18 19:59
[2018-01-08 18:45] LABS: ALBUMIN 4.2 g/dL (3.2-5.5); ALBUMIN/GLOBULIN RATIO 1.6 (1.0-2.2); BILIRUBIN,TOTAL 0.5 mg/dL (0.2-1.0); CALCIUM 9.4 mg/dL (8.5-10.3); CREATININE 0.8 mg/dL (0.4-1.0); TOTAL PROTEIN 6.8 g/dL (6.7-8.2)
[2018-01-08] MEDS ORDERED: HYDROcod/ACETAM 5/325 MG TABLET PO STA (19:03)
[2018-01-08] MEDS ORDERED: PROMETHAZINE 25 MG TABLET PO STA (19:03)
[2018-01-08] MEDS ORDERED: DICYCLOMINE 10 MG CAPSULE PO STA (19:03)
[2018-01-08] MEDS ORDERED: LIDOCAINE VISCOUS 2% 15 ML UDC MM STA (19:04)
[2018-01-08] MEDS ORDERED: MAG HYDROX/AL HYDROX/SIMETH 30 ML UDC PO STA (19:04)
[2018-01-08 19:58] VITALS: BP 98/65
== END 2018-01-08 19:59 | disposition home or self-care (01) ==
LOC: ED 17:07
DX: R10.13 Epigastric pain (principal); Z87.891 Personal history of nicotine dependence
CPT/HCPCS: 36415; 80053; 81003; 81025; 83690; 85025; 99283; A9270; Q0169; 81001; 87086

== ENCOUNTER 2018-01-19 12:10 | Emergency (ER) | payer MEDICAID ==
[2018-01-19 12:38] VITALS: BP 117/74
--- NOTE | 2018-01-19 14:41 | ED Physician Documentation ---
PD HPI URI - Stated complaint Stated Complaint: SINUS PX - Chief complaint Chief Complaint: Heent - History obtained from History obtained from: Patient - History of Present Illness Timing - onset: How many weeks ago (3) Timing duration: Weeks (3) Timing details: Gradual onset, Still present Associated symptoms: Fever (initially but not recent), Ear pain (left), Sinus pain (left side more), Sore throat, Dry cough Contributing factors: No: Sick contact, Travel, Immunocompromised Similar symptoms before: Has not had sx before Recently seen: Not recently seen Review of Systems Constitutional: reports: Chills, Myalgias. denies: Fever Nose: reports: Rhinorrhea / runny nose, Congestion, Sinus pressure / pain Throat: reports: Sore throat Cardiac: denies: Chest pain / pressure, Palpitations Respiratory: reports: Cough. 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 HEENT: None, Chronic sinusitis Psych: Depression, Anxiety Musculoskeletal: None Derm: None - Past Surgical History Past Surgical History: Yes Ortho: Spine surgery HEENT: Tonsil/Adenoidectomy - Present Medications Home Medications: Ambulatory Orders Medication Instructions Recorded Confirmed traZODone [Desyrel] 100 mg PO QPM 07/19/16 10/08/17 Prazosin [Minipress] 2 mg PO DAILY 12/02/16 10/08/17 Varenicline Tartrate [Chantix] 1 mg PO BID 12/26/17 buPROPion [Wellbutrin Sr] 100 mg PO BID 12/26/17 Albuterol Sulf [Ventolin Hfa 1 - 2 puffs INH Q4HR PRN #1 inhaler 01/19/18 Inhaler] Azithromycin [Zithromax] 250 mg PO DAILY #6 tablet 01/19/18 Dexamethasone [Decadron] 4 mg PO DAILY #5 tablet 01/19/18 HYDROcod/ACETAM 5/325 [[place] 5/325] 1 tab PO Q6H PRN #15 tablet 01/19/18 - Allergies Allergies/Adverse Reactions: Allergies Allergy/AdvReac Type Severity Reaction Status Date / Time Penicillins Allergy Rash Verified 01/19/18 12:38 - Social History Does the pt smoke?: No Smoking Status: Never smoker Does the pt drink ETOH?: Yes Does the pt have substance abuse?: No - Immunizations Immunizations are current?: Yes - POLST Patient has POLST: No PD ED PE NORMAL - Vitals Vital signs reviewed: Yes - General General: Alert and oriented X 3, Well developed/nourished, Other (appears uncomfortable) - HEENT HEENT: Ears normal, Moist mucous membranes, Pharynx benign, Other (sinus tenderness to percussion left maxillary and frontal mostly. ) - Neck Neck: Supple, no meningeal sign, No adenopathy - Cardiac Cardiac: RRR, No murmur - Respiratory Respiratory: Clear bilaterally - Abdomen Abdomen: Soft, Non tender - Derm Derm: Normal color, Warm and dry, No rash - Neuro Neuro: Alert and oriented X 3, composite assembler 2-12 intact, No motor deficit, No sensory deficit, Normal speech Eye Opening: Spontaneous Motor: Obeys Commands Verbal: Oriented GCS Score: 15 - Psych Psych: Normal mood Results - Vitals Vitals: Oxygen O2 Source Room air PD MEDICAL DECISION MAKING - ED course Complexity details: considered differential, d/w patient Departure - Departure Disposition: 01 Home, Self Care Clinical Impression: Sinusitis Qualifiers: Sinusitis location: frontal Chronicity: acute Recurrence: non-recurrent Qualified Code(s): J01.10 - Acute frontal sinusitis, unspecified Condition: Stable Record reviewed to determine appropriate education?: Yes Instructions: ED Sinusitis Abx Tx Prescriptions: Albuterol Sulf [Ventolin Hfa Inhaler] 1 - 2 puffs INH Q4HR PRN #1 inhaler PRN Reason: Shortness Of Air/Wheezing Azithromycin [Zithromax] 250 mg PO DAILY #6 tablet Dexamethasone [Decadron] 4 mg PO DAILY #5 tablet HYDROcod/ACETAM 5/325 [[place] 5/325] 1 tab PO Q6H PRN #15 tablet PRN Reason: Pain Comments: Drink lots of fluids. Tylenol or ibuprofen if needed for fevers and pains. Decadron steroid anti-inflammatory for 5 days. Zithromax antibiotic for 5 days as directed. Add Tylenol or hydrocodone if needed for pains. Recheck if not improving over the next several days to week per Discharge Date/Time: 01/19/18 15:08
== END 2018-01-19 15:08 | disposition home or self-care (01) ==
LOC: ED 12:10
DX: J01.10 Acute frontal sinusitis, unspecified (principal)
CPT/HCPCS: 99283

== ENCOUNTER 2018-01-26 09:19 | Emergency (ER) | payer MEDICAID ==
--- NOTE | 2018-01-26 09:33 | ED Physician Documentation ---
History of Present Illness - Stated complaint Stated Complaint: MIGRAINE/NAUSEA - Chief complaint Chief Complaint: Abd Pain - Additonal information Additional information: hx from pt and [id number] female well known to [facility] ER (approx 18 visits in 2017 and most recently seen 1 week ago) hx migraines - takes propanolol and topirimate at home and states toradol compazine benadryl and imitrex don't work for her to ER today with a migraine typcial of her migraines L frontal no fever no CO exposure no trauma no numbness or weakness also has ongoing issues with NV but that is being worked up already by PMD - has had blood work and recent HIDA and that is not what she is here for today Review of Systems Constitutional: denies: Fever, Chills GI: reports: Vomiting Musculoskeletal: denies: Neck pain Neurologic: reports: Headache. 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 : None HEENT: None, Chronic sinusitis Psych: Depression, Anxiety Musculoskeletal: None Derm: None - Past Surgical History Past Surgical History: Yes Ortho: Spine surgery HEENT: Tonsil/Adenoidectomy - Present Medications Home Medications: Ambulatory Orders Medication Instructions Recorded Confirmed traZODone [Desyrel] 100 mg PO QPM 07/19/16 10/08/17 Prazosin [Minipress] 2 mg PO DAILY 12/02/16 10/08/17 Varenicline Tartrate [Chantix] 1 mg PO BID 12/26/17 buPROPion [Wellbutrin Sr] 100 mg PO BID 12/26/17 Ondansetron Odt [Zofran] 4 mg TL Q6H PRN #10 tablet 01/26/18 - Allergies Allergies/Adverse Reactions: Allergies Allergy/AdvReac Type Severity Reaction Status Date / Time Penicillins Allergy Rash Verified 01/19/18 12:38 - Social History Does the pt smoke?: No Smoking Status: Never smoker Does the pt drink ETOH?: Yes Does the pt have substance abuse?: No - Immunizations Immunizations are current?: Yes - POLST Patient has POLST: No PD ED PE NORMAL - Vitals Vital signs reviewed: Yes - General General: Alert and oriented X 3 - HEENT HEENT: PERRL (globes soft, no erythema no dc, no TA TTP) - Neck Neck: Supple, no meningeal sign - Cardiac Cardiac: RRR - Respiratory Respiratory: No respiratory distress - Abdomen Abdomen: Soft, Other (mild TTP) - Neuro Neuro: Alert and oriented X 3, machine umbrella tipper 2-12 intact, No motor deficit, No sensory deficit, Normal speech Results - Vitals Vitals: Vital Signs - 24 hr 01/26/18 09:24 Temperature 36.7 C Heart Rate 72 Respiratory 17 Rate Blood Pressure 108/69 O2 Saturation 99 Oxygen O2 Source Room air Departure - Departure Disposition: Home, Self Care Clinical Impression: Migraine Qualifiers: Migraine type: unspecified Status migrainosus presence: without status migrainosus Intractability: not intractable Qualified Code(s): G43.909 - Migraine, unspecified, not intractable, without status migrainosus Condition: Good Instructions: ED Headache Migraine Prescriptions: Ondansetron Odt [Zofran] 4 mg TL Q6H PRN #10 tablet PRN Reason: Nausea / Vomiting Comments: Please follow up with your PMD to continue to ongoing work up of your GI issues Forms: Activity restrictions
[2018-01-26] MEDS ORDERED: oxyCOD/ACETAMIN 5 MG/325 MG TABLET PO STA (10:06)
[2018-01-26] MEDS ORDERED: ONDANSETRON ODT 4 MG TABLET TL STA (10:06)
[2018-01-26 10:27] VITALS: BP 111/80
== END 2018-01-26 10:29 | disposition home or self-care (01) ==
LOC: ED 09:19
DX: G43.909 Migraine, unspecified, not intractable, without status migrainosus (principal)
CPT/HCPCS: 99283; A9270; Q0162

== ENCOUNTER 2018-02-11 14:51 | Emergency (ER) | payer MEDICAID ==
[2018-02-11 14:57] VITALS: BP 119/73
[2018-02-11] MEDS ORDERED: oxyCOD/ACETAMIN 5 MG/325 MG TABLET PO STA (15:03)
[2018-02-11] MEDS ORDERED: ONDANSETRON ODT 4 MG TABLET TL STA (15:03)
--- NOTE | 2018-02-11 15:05 | ED Physician Documentation ---
PD HPI HEADACHE - Stated complaint Stated Complaint: MIGRAINE - Chief complaint Chief Complaint: Neuro - History obtained from History obtained from: Patient - History of Present Illness Timing - onset: Other (42-year-old woman with frequent migraines presents with a gradual onset typical for her headache that started today with nausea but no vomiting and light sensitivity. She has been seen many times in the emergency department for similar and routine headache medications that are used for migraines do not work for her including Imitrex, and antipsychotics.) Review of Systems Constitutional: denies: Fever, Chills Eyes: reports: Photophobia. 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 HEENT: None, Chronic sinusitis Psych: Depression, Anxiety Musculoskeletal: None Derm: None - Past Surgical History Past Surgical History: Yes Ortho: Spine surgery HEENT: Tonsil/Adenoidectomy - Present Medications Home Medications: Ambulatory Orders Medication Instructions Recorded Confirmed traZODone [Desyrel] 100 mg PO QPM 07/19/16 10/08/17 Prazosin [Minipress] 2 mg PO DAILY 12/02/16 10/08/17 Varenicline Tartrate [Chantix] 1 mg PO BID 12/26/17 buPROPion [Wellbutrin Sr] 100 mg PO BID 12/26/17 Ondansetron Odt [Zofran] 4 mg TL Q6H PRN #10 tablet 01/26/18 Ondansetron HCl [Zofran] 4 mg PO Q6H PRN #10 tablet 02/11/18 Oxycodone HCl/Acetaminophen 1 - 2 tab PO Q4H PRN #7 tablet 02/11/18 [Percocet 5-325 mg Tablet] - Allergies Allergies/Adverse Reactions: Allergies Allergy/AdvReac Type Severity Reaction Status Date / Time Penicillins Allergy Rash Verified 01/19/18 12:38 - Social History Does the pt smoke?: No Smoking Status: Never smoker Does the pt drink ETOH?: Yes Does the pt have substance abuse?: No - Immunizations Immunizations are current?: Yes - POLST Patient has POLST: No PD ED PE NORMAL - Vitals Vital signs reviewed: Yes - General General: Alert and oriented X 3, No acute distress - HEENT HEENT: PERRL, EOMI - Neck Neck: Supple, no meningeal sign, No bony TTP - Neuro Neuro: Alert and oriented X 3, Normal speech Results - Vitals Vitals: Vital Signs - 24 hr 02/11/18 14:56 Temperature 36.6 C Heart Rate 63 Respiratory 18 Rate Blood Pressure 119/73 O2 Saturation 98 Oxygen O2 Source Room air PD MEDICAL DECISION MAKING - ED course ED course: The patient was counseled as to the diagnosis and need for follow-up. I counseled the patient with regard to signs and symptoms that would necessitate an urgent reevaluation in the emergency department. They understand they are welcome to return at any time if worse or if not improving as expected. This document was made in part using voice recognition software. While efforts are made to proofread this documents, sound alike and grammatical errors may occur. Departure - Departure Disposition: 01 Home, Self Care Clinical Impression: Migraine Qualifiers: Migraine type: without aura Status migrainosus presence: with status migrainosus Intractability: not intractable Qualified Code(s): G43.001 - Migraine without aura, not intractable, with status migrainosus Condition: Good Record reviewed to determine appropriate education?: Yes Instructions: ED Headache Migraine Prescriptions: Ondansetron HCl [Zofran] 4 mg PO Q6H PRN #10 tablet PRN Reason: Nausea / Vomiting Oxycodone HCl/Acetaminophen [Percocet 5-325 mg Tablet] 1 - 2 tab PO Q4H PRN #7 tablet PRN Reason: Pain Comments: Call your doctor to arrange a follow-up appointment, make the next available appointment. In the interim, return anytime if worse or if new symptoms develop.
[2018-02-11] MEDS ORDERED: CYCLOBENZAPRINE 10 MG TABLET PO STA (15:06)
== END 2018-02-11 15:11 | disposition home or self-care (01) ==
LOC: ED 14:51
DX: G43.001 Migraine without aura, not intractable, with status migrainosus (principal)
CPT/HCPCS: 99283; A9270; Q0162

== ENCOUNTER 2018-02-13 15:56 | Emergency (ER) | payer MEDICAID ==
[2018-02-13 16:03] VITALS: BP 112/65
[2018-02-13] MEDS ORDERED: oxyCOD/ACETAMIN 5 MG/325 MG TABLET PO STA (16:08)
--- NOTE | 2018-02-13 16:10 | ED Physician Documentation ---
History of Present Illness - Stated complaint Stated Complaint: MIGRAINE - Chief complaint Chief Complaint: Heent - Additonal information Additional information: hx from pt freq ER user (15+ X per year here) hx migraines take propanolol and topirimate at home states toradol compazine benadryl don't work no PMD right now - was dismissed from prior clinic 2/2 missed appt to ED today with a frontal WILKERSON of one day duration same as prior migraines no fever no neck stiffness no numbness no weakness no trauma no CO exposure Review of Systems Constitutional: denies: Fever Eyes: reports: Photophobia GI: denies: Vomiting : denies: Now EGA Musculoskeletal: denies: Neck pain Neurologic: reports: Headache. 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 HEENT: None, Chronic sinusitis Psych: Depression, Anxiety Musculoskeletal: None Derm: None - Past Surgical History Past Surgical History: Yes Ortho: Spine surgery HEENT: Tonsil/Adenoidectomy - Present Medications Home Medications: Ambulatory Orders Medication Instructions Recorded Confirmed traZODone [Desyrel] 100 mg PO QPM 07/19/16 10/08/17 Prazosin [Minipress] 2 mg PO DAILY 12/02/16 10/08/17 Varenicline Tartrate [Chantix] 1 mg PO BID 12/26/17 buPROPion [Wellbutrin Sr] 100 mg PO BID 12/26/17 Ondansetron Odt [Zofran] 4 mg TL Q6H PRN #10 tablet 01/26/18 Ondansetron HCl [Zofran] 4 mg PO Q6H PRN #10 tablet 02/11/18 Propranolol [Inderal] 100 mg PO 02/13/18 Topiramate 75 mg PO 02/13/18 - Allergies Allergies/Adverse Reactions: Allergies Allergy/AdvReac Type Severity Reaction Status Date / Time Penicillins Allergy Rash Verified 02/13/18 16:03 - Social History Does the pt smoke?: No Smoking Status: Never smoker Does the pt drink ETOH?: Yes Does the pt have substance abuse?: No - Immunizations Immunizations are current?: Yes - POLST Patient has POLST: No PD ED PE NORMAL - Vitals Vital signs reviewed: Yes - General General: Alert and oriented X 3 - HEENT HEENT: PERRL, EOMI, Other (globes soft, not hazy or injected, no TA cord or TTP) - Neck Neck: Supple, no meningeal sign - Cardiac Cardiac: RRR - Respiratory Respiratory: No respiratory distress, Clear bilaterally - Abdomen Abdomen: Soft, Non tender - Derm Derm: Normal color - Neuro Neuro: Alert and oriented X 3, tribal judge 2-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, No motor deficit, Normal speech Eye Opening: Spontaneous Motor: Obeys Commands Verbal: Oriented GCS Score: 15 Results - Vitals Vitals: Vital Signs - 24 hr 02/13/18 16:01 Temperature 36.7 C Heart Rate 56 L Respiratory 18 Rate Blood Pressure 112/65 O2 Saturation 98 Oxygen O2 Source Room air Departure - Departure Disposition: 01 Home, Self Care Clinical Impression: Migraine Qualifiers: Migraine type: unspecified Status migrainosus presence: without status migrainosus Intractability: not intractable Qualified Code(s): G43.909 - Migraine, unspecified, not intractable, without status migrainosus Condition: Good Instructions: ED Headache Migraine
== END 2018-02-13 16:22 | disposition home or self-care (01) ==
LOC: ED 15:56
DX: G43.909 Migraine, unspecified, not intractable, without status migrainosus (principal)
CPT/HCPCS: 99282

== ENCOUNTER 2018-02-13 17:50 | Emergency (ER) | payer MEDICAID ==
--- NOTE | 2018-02-13 19:01 | ED Physician Documentation ---
PD HPI HEADACHE - Stated complaint Stated Complaint: MIGRAINE - Chief complaint Chief Complaint: General - History obtained from History obtained from: Patient - History of Present Illness Timing - onset: How many days ago (last night, with some heddache undulating for 1-2 days.) Timing - onset during: Light activity Timing - details: Gradual onset, Still present, Waxing and waning Worst headache ever?: No: Worst headache ever? Location: Right Quality: Throbbing, Aching Associated symptoms: Nausea. No: Fever, Stiff neck, Vomiting, Weakness, Vision changes Worsened by: Light, Noise Contributing factors: No: Hypertension, Recent illness, Trauma Similar symptoms before: Diagnosis (migraines for many years) Recently seen: Emergency Dept (few hours ago and given just single PO percocet as patient declined other treatment options offered. Wanted Rx for Percocet but was not given one based on discussion of general guidelines for narcotics in migraine and other treatments being preferred. Patient left without accepting other options.) Review of Systems Constitutional: denies: Fever, Chills Nose: denies: Rhinorrhea / runny nose, Congestion Throat: denies: Sore throat Respiratory: denies: Cough GI: reports: Nausea, Vomiting. 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 HEENT: None, Chronic sinusitis Psych: Depression, Anxiety Musculoskeletal: None Derm: None - Past Surgical History Past Surgical History: Yes Ortho: Spine surgery HEENT: Tonsil/Adenoidectomy - Present Medications Home Medications: Ambulatory Orders Medication Instructions Recorded Confirmed traZODone [Desyrel] 100 mg PO QPM 07/19/16 10/08/17 Prazosin [Minipress] 2 mg PO DAILY 12/02/16 10/08/17 Varenicline Tartrate [Chantix] 1 mg PO BID 12/26/17 buPROPion [Wellbutrin Sr] 100 mg PO BID 12/26/17 Ondansetron Odt [Zofran] 4 mg TL Q6H PRN #10 tablet 01/26/18 Ondansetron HCl [Zofran] 4 mg PO Q6H PRN #10 tablet 02/11/18 Butalb/Acetaminophen/Caffeine 1 each PO Q6H PRN #25 capsule 02/13/18 [Fioricet 50-300-40 mg Capsule] Promethazine [Phenergan] 25 mg PO Q6H PRN #25 tab 02/13/18 Propranolol [Inderal] 100 mg PO 02/13/18 Topiramate 75 mg PO 02/13/18 - Allergies Allergies/Adverse Reactions: Allergies Allergy/AdvReac Type Severity Reaction Status Date / Time Penicillins Allergy Rash Verified 02/13/18 16:03 - Social History Does the pt smoke?: No Smoking Status: Never smoker Does the pt drink ETOH?: Yes Does the pt have substance abuse?: No - Immunizations Immunizations are current?: Yes - POLST Patient has POLST: No PD ED PE NORMAL - Vitals Vital signs reviewed: Yes - General General: Alert and oriented X 3, No acute distress, Well developed/nourished - HEENT HEENT: Ears normal, Pharynx benign - Neck Neck: Supple, no meningeal sign, No adenopathy - Cardiac Cardiac: RRR, No murmur - Respiratory Respiratory: Clear bilaterally - Neuro Neuro: Alert and oriented X 3, 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 She says other things do not work. Was not given Rx for that, so she returned again. ), considered differential ( discussed with patient non-narcotic options and she says other treatments do not work in the past. I asked about Fioricet and she had not tried that in a while and it did work at times in the past. So was willing to give that a try. ) , d/w patient Departure - Departure Disposition: 01 Home, Self Care Clinical Impression: Migraine Qualifiers: Migraine type: unspecified Status migrainosus presence: with status migrainosus Intractability: not intractable Qualified Code(s): G43.901 - Migraine, unspecified, not intractable, with status migrainosus Condition: Stable Record reviewed to determine appropriate education?: Yes Prescriptions: Butalb/Acetaminophen/Caffeine [Fioricet 50-300-40 mg Capsule] 1 each PO Q6H PRN #25 capsule PRN Reason: Headache Promethazine [Phenergan] 25 mg PO Q6H PRN #25 tab PRN Reason: Nausea / Vomiting Comments: Drink lots of fluids. Continue your current usual medications. For the migraines, you can try promethazine with Fioricet as he said those have helped in the past. Add ibuprofen to it as well. Follow-up with your primary care or neurology regarding further or alternate medications for them. Discharge Date/Time: 02/13/18 19:59
[2018-02-13] MEDS ORDERED: PROMETHAZINE 25 MG TABLET PO STA (19:17)
[2018-02-13] MEDS ORDERED: BUTALB/ACETAM/CAFF 50/325/40MG TABLET PO STA (19:17)
[2018-02-13] MEDS ORDERED: IBUPROFEN 600 MG TABLET PO STA (19:18)
[2018-02-13 19:59] VITALS: BP 103/68
== END 2018-02-13 19:59 | disposition home or self-care (01) ==
LOC: ED 17:50
DX: G43.901 Migraine, unspecified, not intractable, with status migrainosus (principal)
CPT/HCPCS: 99282; 99283; 99284; A9270; Q0169

== ENCOUNTER 2018-02-21 18:17 | Emergency (ER) | payer MEDICAID ==
--- NOTE | 2018-02-21 19:30 | ED Physician Documentation ---
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 Location: Left Quality: Throbbing, Aching Associated symptoms: No: Fever, Stiff neck Improved by: No: Meds Worsened by: Light, Noise, Moving Contributing factors: No: Anticoagulated, Recent illness, Trauma Recently seen: Clinic (seen by her Neurologist yesterday and is scheduled to start botox March 28 or such. Increased her Topomax and her beta makenna. Still with this headache.) Review of Systems Constitutional: denies: Fever, Chills Eyes: reports: Photophobia. denies: Loss of vision Ears: denies: Ear pain, Drainage/discharge Nose: reports: Rhinorrhea / runny nose. denies: Congestion Throat: denies: Sore throat Cardiac: denies: Chest pain / pressure, Palpitations Respiratory: denies: Dyspnea, Cough GI: reports: Nausea, Diarrhea. 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 HEENT: None, Chronic sinusitis Psych: Depression, Anxiety Musculoskeletal: None Derm: None - Past Surgical History Past Surgical History: Yes Ortho: Spine surgery HEENT: Tonsil/Adenoidectomy - Present Medications Home Medications: Ambulatory Orders Medication Instructions Recorded Confirmed traZODone [Desyrel] 100 mg PO QPM 07/19/16 10/08/17 Prazosin [Minipress] 2 mg PO DAILY 12/02/16 10/08/17 buPROPion [Wellbutrin Sr] 100 mg PO BID 12/26/17 Ondansetron Odt [Zofran] 4 mg TL Q6H PRN #10 tablet 01/26/18 Butalb/Acetaminophen/Caffeine 1 each PO Q6H PRN #25 capsule 02/13/18 [Fioricet 50-300-40 mg Capsule] Promethazine [Phenergan] 25 mg PO Q6H PRN #25 tab 02/13/18 Propranolol [Inderal] 80 mg PO 02/13/18 Topiramate 15 mg PO 02/13/18 - Allergies Allergies/Adverse Reactions: Allergies Allergy/AdvReac Type Severity Reaction Status Date / Time Penicillins Allergy Rash Verified 02/21/18 18:32 - Social History Does the pt smoke?: No Smoking Status: Never smoker Does the pt drink ETOH?: Yes Does the pt have substance abuse?: No - Immunizations Immunizations are current?: Yes - POLST Patient has POLST: No PD ED PE NORMAL - Vitals Vital signs reviewed: Yes - General General: Alert and oriented X 3, No acute distress, Well developed/nourished - HEENT HEENT: PERRL, EOMI (light sensitive) - Neck Neck: Supple, no meningeal sign, No adenopathy - Cardiac Cardiac: RRR, No murmur - Respiratory Respiratory: Clear bilaterally - Abdomen Abdomen: Soft, Non tender - Derm Derm: Normal color, Warm and dry - Extremities Extremities: No tenderness to palpate, Normal ROM s pain, No calf tenderness / cord - Neuro Neuro: Alert and oriented X 3, 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 Did not give short acting/opiates. She says percocet is the only thing that helps. She is willing though to try other meds IV that she had not had before. Gave IV fluids with Haldol for nausea and headache. This improved nausea but not pain. Ketamine given at .5 mg/kg. This did make the headache improved. Still with some headache but decreased from initial. Dilaudid dose given with headache then gone. With the other meds and also steroids, I feel the narcotic is less likely to just lead to rebound. ), d/w patient Departure - Departure Disposition: 01 Home, Self Care Clinical Impression: Migraine Qualifiers: Migraine type: without aura Status migrainosus presence: with status migrainosus Intractability: not intractable Qualified Code(s): G43.001 - Migraine without aura, not intractable, with status migrainosus Condition: Stable Record reviewed to determine appropriate education?: Yes Instructions: ED Headache Migraine Comments: Continue medications as usual at home. Follow-up with your primary care or neurology regarding recurring headaches. Drink lots of fluids. Discharge Date/Time: 02/21/18 22:13
[2018-02-21] MEDS ORDERED: SODIUM CHLORIDE 0.9% 1,000 ML IV ONE (19:49)
[2018-02-21] MEDS ORDERED: HALOPERIDOL 5 MG/ML VIAL IVP ONE (19:49)
[2018-02-21] MEDS ORDERED: diphenhydrAMINE INJ 50 MG/ML VIAL IVP STA (19:50)
[2018-02-21] MEDS ORDERED: DEXAMETHASONE 10 MG/ML VIAL IVP STA (19:50)
[2018-02-21] MEDS ORDERED: ACETAMINOPHEN 1,000 MG/100 ML 100 ML IV STA (19:51)
[2018-02-21] MEDS ORDERED: KETAMINE 500 MG/10 ML VIAL IVP STA (20:36)
[2018-02-21] MEDS ORDERED: HYDROmorphone 1 MG/ML CARPUJECT IVP STA (20:43)
[2018-02-21 22:06] VITALS: BP 127/81
== END 2018-02-21 22:13 | disposition home or self-care (01) ==
LOC: ED 18:17
DX: G43.001 Migraine without aura, not intractable, with status migrainosus (principal)
CPT/HCPCS: 96374; 96375; 99283; 99284; J0131; J1170; J1200

== ENCOUNTER 2018-03-07 18:09 | Emergency (ER) | payer MEDICAID ==
[2018-03-07 18:35] VITALS: BP 104/62
--- NOTE | 2018-03-07 19:22 | ED Physician Documentation ---
History of Present Illness - Stated complaint Stated Complaint: MIGRAIN - Chief complaint Chief Complaint: General - History obtained from History obtained from: Patient - History of Present Illness Timing: Other (She has had a constant headache for 2 weeks. She frequents the emergency department for headaches. I asked her with been going on lately, she is under a lot of stress because of an ongoing court case, she was arrested and had Xanax in the car that was not hers. She is facing a [facility] sentence for this. 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 HEENT: None, Chronic sinusitis Psych: Depression, Anxiety Musculoskeletal: None Derm: None - Past Surgical History Past Surgical History: Yes Ortho: Spine surgery HEENT: Tonsil/Adenoidectomy - Present Medications Home Medications: Ambulatory Orders Medication Instructions Recorded Confirmed traZODone [Desyrel] 100 mg PO QPM 07/19/16 10/08/17 Prazosin [Minipress] 2 mg PO DAILY 12/02/16 10/08/17 buPROPion [Wellbutrin Sr] 100 mg PO BID 12/26/17 Ondansetron Odt [Zofran] 4 mg TL Q6H PRN #10 tablet 01/26/18 Promethazine [Phenergan] 25 mg PO Q6H PRN #25 tab 02/13/18 Propranolol [Inderal] 80 mg PO 02/13/18 Topiramate 50 mg PO DAILY 02/13/18 Oxycodone HCl/Acetaminophen 1 - 2 tab PO Q4H PRN #10 tablet 03/07/18 [Percocet 5-325 mg Tablet] - Allergies Allergies/Adverse Reactions: Allergies Allergy/AdvReac Type Severity Reaction Status Date / Time Penicillins Allergy Rash Verified 03/07/18 18:35 - Social History Does the pt smoke?: No Smoking Status: Never smoker Does the pt drink ETOH?: Yes Does the pt have substance abuse?: No - Immunizations Immunizations are current?: Yes - POLST Patient has POLST: No PD ED PE NORMAL - Vitals Vital signs reviewed: Yes - General General: Alert and oriented X 3, No acute distress - HEENT HEENT: PERRL, EOMI - Neck Neck: Supple, no meningeal sign, No bony TTP - Cardiac Cardiac: RRR - Neuro Neuro: Alert and oriented X 3 Eye Opening: Spontaneous Motor: Obeys Commands Verbal: Oriented GCS Score: 15 - Psych Psych: Normal mood, Normal affect Results - Vitals Vitals: Vital Signs - 24 hr 03/07/18 18:33 Temperature 36.9 C Heart Rate 65 Respiratory 15 Rate Blood Pressure 104/62 O2 Saturation 99 Oxygen O2 Source Room air PD MEDICAL DECISION MAKING - ED course ED course: She declined IV medications here, she says Toradol does not work and she does 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 Given the history and frequency of emergency department use I discussed with her that no further narcotics would be forthcoming this year for headaches. Departure - Departure Disposition: 01 Home, Self Care Clinical Impression: Migraine Qualifiers: Migraine type: without aura Status migrainosus presence: with status migrainosus Intractability: intractable Qualified Code(s): G43.011 - Migraine without aura, intractable, with status migrainosus Condition: Good Record reviewed to determine appropriate education?: Yes Instructions: ED Cephalgia Unspecified Prescriptions: Oxycodone HCl/Acetaminophen [Percocet 5-325 mg Tablet] 1 - 2 tab PO Q4H PRN #10 tablet PRN Reason: Pain Comments: As discussed, no further prescriptions for narcotics this year for headaches. Followup with your neurologist as scheduled for botox.
== END 2018-03-07 19:30 | disposition home or self-care (01) ==
LOC: ED 18:09
DX: G43.011 Migraine without aura, intractable, with status migrainosus (principal)
CPT/HCPCS: 99283; 99284

== ENCOUNTER 2018-03-08 19:25 | Emergency (ER) | payer MEDICAID ==
--- NOTE | 2018-03-08 20:14 | ED Physician Documentation ---
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 Location: Global Associated symptoms: No: Fever Improved by: Nothing Recently seen: Emergency Dept (T+R yesterday from this ED for same.) - Additional information Additional information: T+R yesterday from this ED for headache. Returns daina c/o ongoing headache and that the percocet prescribed on previous visit is not providing adequate relief. Frequent ED visits, total of 24 ED visits (on [facility] form) over past 12 months. Daina is her third [facility] ED visit this month; she had 5 [facility] ED visits last month and 3 in December. Patient says she currently has no primary care physician as she "missed too many appointments" (per patient) and thus is waiting to see a new PMD. Review of Systems Constitutional: denies: Fever Eyes: denies: Decreased vision, Photophobia Neurologic: reports: Headache. 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 HEENT: None, Chronic sinusitis Psych: Depression, Anxiety Musculoskeletal: None Derm: None - Past Surgical History Past Surgical History: Yes Ortho: Spine surgery HEENT: Tonsil/Adenoidectomy - Present Medications Home Medications: Ambulatory Orders Medication Instructions Recorded Confirmed traZODone [Desyrel] 100 mg PO QPM 07/19/16 03/08/18 Prazosin [Minipress] 2 mg PO DAILY 12/02/16 03/08/18 buPROPion [Wellbutrin Sr] 100 mg PO BID 12/26/17 03/08/18 Ondansetron Odt [Zofran] 4 mg TL Q6H PRN #10 tablet 01/26/18 03/08/18 Promethazine [Phenergan] 25 mg PO Q6H PRN #25 tab 02/13/18 03/08/18 Propranolol [Inderal] 80 mg PO DAILY 02/13/18 03/08/18 Topiramate 50 mg PO DAILY 02/13/18 03/08/18 Oxycodone HCl/Acetaminophen 1 - 2 tab PO Q4H PRN #10 tablet 03/07/18 03/08/18 [Percocet 5-325 mg Tablet] - Allergies Allergies/Adverse Reactions: Allergies Allergy/AdvReac Type Severity Reaction Status Date / Time Penicillins Allergy Rash Verified 03/07/18 18:35 - Social History Does the pt smoke?: No Smoking Status: Never smoker Does the pt drink ETOH?: Yes Does the pt have substance abuse?: No - Immunizations Immunizations are current?: Yes - POLST Patient has POLST: No PD ED PE NORMAL - Vitals Vital signs reviewed: Yes - General General: Alert and oriented X 3, No acute distress, Well developed/nourished - HEENT HEENT: PERRL, EOMI - Neck Neck: Supple, no meningeal sign - Cardiac Cardiac: RRR, No murmur - Respiratory Respiratory: No respiratory distress, Clear bilaterally - Neuro Neuro: Alert and oriented X 3, 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 She also says ultram worsens her headaches. However, when I mention tramadol, she says that has provided some relief in the past; I point out that these are the same medication and she again says she can take tramadol. She says she has been taking ibuprofen without relief. Given her frequency of visits, and also considering that the ED note from yesterday's visit involved discussion that she would not be getting narcotic/ opiate medication in the near future for this same problem, I do not feel narcotic/opiate medications would be appropriate at this time. Because she has been to EDs so frequently for headache, I asked her what non-opiate medications in the past have been effective for her that she can take; unfortunately, she cannot provide any regimen that has provided relief in the past that is non- narcotic. I suggested benadryl, flexeril, and ultram, and she is agreeable to try these. These three medications were given in ED. When I went to reevaluate her, the nurse informed me that patient had just left the ED and expressed dissatisfaction with her treatment and medications provided. Departure - Departure Disposition: 01 Home, Self Care Clinical Impression: Headache Qualifiers: Headache type: unspecified Headache chronicity pattern: chronic headache Intractability: intractable Qualified Code(s): R51 - Headache Condition: Good Discharge Date/Time: 03/08/18 21:38
[2018-03-08] MEDS ORDERED: traMADol 50 MG TABLET PO STA (20:31)
[2018-03-08] MEDS ORDERED: CYCLOBENZAPRINE 10 MG TABLET PO STA (20:31)
[2018-03-08] MEDS ORDERED: diphenhydrAMINE 25 MG CAPSULE PO STA (20:31)
[2018-03-08 21:29] VITALS: BP 120/68
== END 2018-03-08 21:38 | disposition home or self-care (01) ==
LOC: ED 19:25
DX: R51 Headache (principal)
CPT/HCPCS: 99283; A9270

== ENCOUNTER 2018-03-31 18:05 | Emergency (ER) | payer MEDICAID ==
[2018-03-31 18:19] VITALS: BP 120/72
[2018-03-31] MEDS ORDERED: SUMAtriptan 25 MG TABLET PO STA (18:38)
[2018-03-31] MEDS ORDERED: CYCLOBENZAPRINE 10 MG TABLET PO STA (18:38)
--- NOTE | 2018-03-31 18:41 | ED Physician Documentation ---
History of Present Illness - Stated complaint Stated Complaint: MIGRAINE - Chief complaint Chief Complaint: General - History obtained from History obtained from: Patient - History of Present Illness Timing: Yesterday (Gradual onset typical headache for her since last night associated with light sensitivity but no vomiting, fevers, or neck stiffness. She has recently started getting Botox for her migraines and had the first injections a few days ago and is also beginning acupuncture. She has tried over -the-counter medications without relief. Of note, personal experience and review of her chart show that the last couple of visits to the emergency department have been contentious, 2 visits ago she was told that because of some drug-seeking behavior and frequent emergency department use and standards we would no longer give her narcotics for her headaches, and on the last visit when refused narcotics it sounds like she got a little belligerent and walked out after swearing at staff.) Review of Systems Constitutional: denies: Fever, Chills GI: denies: Abdominal Pain, Nausea, Vomiting Skin: denies: Rash, Lesions Musculoskeletal: denies: Neck pain, Back pain PD PAST MEDICAL HISTORY - Past Medical History Cardiovascular: Murmur Respiratory: None Endocrine/Autoimmune: None GI: Cholelithiasis 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 HEENT: None, Chronic sinusitis Psych: Depression, Anxiety Musculoskeletal: None Derm: None - Past Surgical History Past Surgical History: Yes Ortho: Spine surgery HEENT: Tonsil/Adenoidectomy - Present Medications Home Medications: Ambulatory Orders Medication Instructions Recorded Confirmed traZODone [Desyrel] 100 mg PO QPM 07/19/16 03/08/18 Prazosin [Minipress] 2 mg PO DAILY 12/02/16 03/08/18 buPROPion [Wellbutrin Sr] 100 mg PO BID 12/26/17 03/08/18 Ondansetron Odt [Zofran] 4 mg TL Q6H PRN #10 tablet 01/26/18 03/08/18 Promethazine [Phenergan] 25 mg PO Q6H PRN #25 tab 02/13/18 03/08/18 Propranolol [Inderal] 80 mg PO DAILY 02/13/18 03/08/18 Topiramate 50 mg PO DAILY 02/13/18 03/08/18 Cyclobenzaprine [Flexeril] 10 mg PO TID PRN #10 tablet 03/31/18 SUMAtriptan [Imitrex] 25 mg PO BID PRN #10 tablet 03/31/18 - Allergies Allergies/Adverse Reactions: Allergies Allergy/AdvReac Type Severity Reaction Status Date / Time Penicillins Allergy Rash Verified 03/31/18 18:19 - Social History Does the pt smoke?: No Smoking Status: Never smoker Does the pt drink ETOH?: Yes Does the pt have substance abuse?: No - Immunizations Immunizations are current?: Yes - POLST Patient has POLST: No PD ED PE NORMAL - Vitals Vital signs reviewed: Yes - General General: Alert and oriented X 3, No acute distress - HEENT HEENT: PERRL, EOMI - Neck Neck: Supple, no meningeal sign, No bony TTP - Neuro Neuro: Alert and oriented X 3 Eye Opening: Spontaneous Motor: Obeys Commands Verbal: Oriented GCS Score: 15 - Psych Psych: Normal mood, Normal affect Results - Vitals Vitals: Vital Signs - 24 hr 03/31/18 18:17 Temperature 36.4 C L Heart Rate 66 Respiratory 18 Rate Blood Pressure 120/72 O2 Saturation 99 Oxygen O2 Source Room air PD MEDICAL DECISION MAKING - ED course ED course: The headache is gradual in onset and similar to prior headaches. As such I doubt subarachnoid hemorrhage. There are no infectious symptoms such as fever or stiff neck to make me suspect meningitis. No carbon monoxide exposure by history. Departure - Departure Disposition: 01 Home, Self Care Clinical Impression: Tension headache Migraine Qualifiers: Migraine type: without aura Status migrainosus presence: with status migrainosus Intractability: not intractable Qualified Code(s): G43.001 - Migraine without aura, not intractable, with status migrainosus Condition: Good Record reviewed to determine appropriate education?: Yes Instructions: ED Cephalgia Unspecified Prescriptions: Cyclobenzaprine [Flexeril] 10 mg PO TID PRN #10 tablet PRN Reason: Pain SUMAtriptan [Imitrex] 25 mg PO BID PRN #10 tablet PRN Reason: Headache Comments: Call your doctor to arrange a follow-up appointment, make the next available appointment. In the interim, return anytime if worse or if new symptoms develop.
== END 2018-03-31 19:15 | disposition home or self-care (01) ==
LOC: ED 18:05
DX: G44.209 Tension-type headache, unspecified, not intractable (principal); G43.001 Migraine without aura, not intractable, with status migrainosus
CPT/HCPCS: 99283; A9270

== ENCOUNTER 2018-04-23 18:20 | Emergency (ER) | payer MEDICAID ==
[2018-04-23 18:32] VITALS: BP 128/80
--- NOTE | 2018-04-23 18:46 | ED Physician Documentation ---
History of Present Illness - Stated complaint Stated Complaint: HEAD PX - Chief complaint Chief Complaint: General - History obtained from History obtained from: Patient - History of Present Illness Timing: Today (Gradual onset global headache consistent with prior migraines that started today. She is light sensitive but not sound sensitive. Has not vomited. There is no fever. Of note she got Botox last month and this is her first migraine in about a month which is pretty good for her.) Review of Systems Constitutional: denies: Fever, Chills GI: reports: Nausea. 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 : None HEENT: Chronic sinusitis Psych: Depression, Anxiety Musculoskeletal: None Derm: None - Past Surgical History Past Surgical History: Yes Ortho: Spine surgery HEENT: Tonsil/Adenoidectomy - Present Medications Home Medications: Ambulatory Orders Medication Instructions Recorded Confirmed traZODone [Desyrel] 100 mg PO QPM 07/19/16 03/08/18 Prazosin [Minipress] 2 mg PO DAILY 12/02/16 03/08/18 buPROPion [Wellbutrin Sr] 100 mg PO BID 12/26/17 03/08/18 Ondansetron Odt [Zofran] 4 mg TL Q6H PRN #10 tablet 01/26/18 03/08/18 Promethazine [Phenergan] 25 mg PO Q6H PRN #25 tab 02/13/18 03/08/18 Propranolol [Inderal] 80 mg PO DAILY 02/13/18 03/08/18 Topiramate 50 mg PO DAILY 02/13/18 03/08/18 Cyclobenzaprine [Flexeril] 10 mg PO TID PRN #10 tablet 03/31/18 SUMAtriptan [Imitrex] 25 mg PO BID PRN #10 tablet 03/31/18 Butalb/Acetaminophen/Caffeine 1 each PO Q4H PRN #10 capsule 04/23/18 [Fioricet 50-300-40 mg Capsule] Cyclobenzaprine [Flexeril] 10 mg PO TID PRN #10 tablet 04/23/18 - Allergies Allergies/Adverse Reactions: Allergies Allergy/AdvReac Type Severity Reaction Status Date / Time Penicillins Allergy Rash Verified 04/23/18 18:33 - Social History Does the pt smoke?: No Smoking Status: Never smoker Does the pt drink ETOH?: Yes Does the pt have substance abuse?: No - Immunizations Immunizations are current?: Yes - POLST Patient has POLST: No PD ED PE NORMAL - Vitals Vital signs reviewed: Yes - General General: Alert and oriented X 3, No acute distress - HEENT HEENT: PERRL, EOMI - Neck Neck: Supple, no meningeal sign, No bony TTP - Neuro Neuro: Alert and oriented X 3 Eye Opening: Spontaneous Motor: Obeys Commands Verbal: Oriented GCS Score: 15 - Psych Psych: Normal mood, Normal affect Results - Vitals Vitals: Vital Signs - 24 hr 04/23/18 18:25 Temperature 36.5 C Heart Rate 69 Respiratory 16 Rate Blood Pressure 128/80 O2 Saturation 96 Oxygen O2 Source Room air PD MEDICAL DECISION MAKING - ED course ED course: The headache is gradual in onset and similar to prior headaches. As such I doubt subarachnoid hemorrhage. There are no infectious symptoms such as fever or stiff neck to make me suspect meningitis. No carbon monoxide exposure by history. Departure - Departure Disposition: 01 Home, Self Care Clinical Impression: Migraine Qualifiers: Migraine type: without aura Status migrainosus presence: with status migrainosus Intractability: not intractable Qualified Code(s): G43.001 - Migraine without aura, not intractable, with status migrainosus Condition: Good Record reviewed to determine appropriate education?: Yes Instructions: ED Cephalgia Unspecified Prescriptions: Butalb/Acetaminophen/Caffeine [Fioricet 50-300-40 mg Capsule] 1 each PO Q4H PRN #10 capsule PRN Reason: Pain Cyclobenzaprine [Flexeril] 10 mg PO TID PRN #10 tablet PRN Reason: Pain Comments: Call your doctor to arrange a follow-up appointment, make the next available appointment. In the interim, return anytime if worse or if new symptoms develop.
== END 2018-04-23 18:49 | disposition home or self-care (01) ==
LOC: ED 18:20
DX: G43.001 Migraine without aura, not intractable, with status migrainosus (principal)
CPT/HCPCS: 99283

== ENCOUNTER 2018-08-24 19:56 | Emergency (ER) | payer MEDICAID ==
[2018-08-24 20:04] VITALS: BP 125/71
--- NOTE | 2018-08-24 20:16 | ED Physician Documentation ---
PD HPI HEADACHE - Stated complaint Stated Complaint: WILKERSON - Chief complaint Chief Complaint: General - History obtained from History obtained from: Patient - History of Present Illness Timing - onset: Today Timing - details: Gradual onset, Still present Location: Global Associated symptoms: No: Fever, Stiff neck, Nausea, Vomiting, Weakness Similar symptoms before: Work up / diagnostics, Treatment Recently seen: Not recently seen - Additional information Additional information: Patient is a 43 year old female with a history of migraines who is presenting to the emergency department for a headache. patient states that she ran out of her fiorcet which she normally takes for breakthrough pain. patient states that she called her doctor's office but the office was closed so patient was asking for a refill. Review of Systems Ten Systems: 10 systems reviewed and negative Neurologic: reports: Headache. 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 : None HEENT: Chronic sinusitis Psych: Depression, Anxiety Musculoskeletal: None Derm: None - Past Surgical History Past Surgical History: Yes Ortho: Spine surgery HEENT: Tonsil/Adenoidectomy - Present Medications Home Medications: Ambulatory Orders Medication Instructions Recorded Confirmed traZODone [Desyrel] 100 mg PO QPM 07/19/16 03/08/18 Prazosin [Minipress] 2 mg PO DAILY 12/02/16 03/08/18 buPROPion [Wellbutrin Sr] 100 mg PO BID 12/26/17 03/08/18 Ondansetron Odt [Zofran] 4 mg TL Q6H PRN #10 tablet 01/26/18 03/08/18 Promethazine [Phenergan] 25 mg PO Q6H PRN #25 tab 02/13/18 03/08/18 Propranolol [Inderal] 80 mg PO DAILY 02/13/18 03/08/18 Topiramate 50 mg PO DAILY 02/13/18 03/08/18 Cyclobenzaprine [Flexeril] 10 mg PO TID PRN #10 tablet 03/31/18 SUMAtriptan [Imitrex] 25 mg PO BID PRN #10 tablet 03/31/18 Butalb/Acetaminophen/Caffeine 1 each PO Q4H PRN #10 capsule 04/23/18 [Fioricet 50-300-40 mg Capsule] Cyclobenzaprine [Flexeril] 10 mg PO TID PRN #10 tablet 04/23/18 Butalb/Acetaminophen/Caffeine 1 each PO Q4HR #10 capsule 08/24/18 [Fioricet 50-300-40 mg Capsule] - Allergies Allergies/Adverse Reactions: Allergies Allergy/AdvReac Type Severity Reaction Status Date / Time Penicillins Allergy Rash Verified 08/24/18 20:04 - Social History Does the pt smoke?: No Smoking Status: Never smoker Does the pt drink ETOH?: Yes Does the pt have substance abuse?: No - Immunizations Immunizations are current?: Yes - POLST Patient has POLST: No PD ED PE NORMAL - Vitals Vital signs reviewed: Yes - General General: Alert and oriented X 3, No acute distress - HEENT HEENT: Atraumatic - Neck Neck: Supple, no meningeal sign - Cardiac Cardiac: RRR - Respiratory Respiratory: No respiratory distress - Derm Derm: Normal color, Warm and dry - Extremities Extremities: No deformity - Neuro Neuro: Alert and oriented X 3, 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 patient was in no acute distress. Prescription was written. patient required no further work up and was stable for discharge with outpatient follow up. - Sepsis Event Vital Signs: Vital Signs - 24 hr 08/24/18 20:02 Temperature 36.8 C Heart Rate 59 L Respiratory 17 Rate Blood Pressure 125/71 O2 Saturation 98 Oxygen O2 Source Room air Departure - Departure Disposition: 01 Home, Self Care Clinical Impression: Migraine Condition: Good Instructions: ED Headache Migraine Follow-Up: primary,care provider [Other] - As Needed Prescriptions: Butalb/Acetaminophen/Caffeine [Fioricet 50-300-40 mg Capsule] 1 each PO Q4HR #10 capsule Comments: Follow up with your doctor tomorrow or the pharmacy for med refill. You may return at any time for new, worsening or uncontrollable symptoms. Discharge Date/Time: 08/24/18 20:20
== END 2018-08-24 20:20 | disposition home or self-care (01) ==
LOC: ED 19:56
DX: G43.909 Migraine, unspecified, not intractable, without status migrainosus (principal)
CPT/HCPCS: 99283

== ENCOUNTER 2018-12-13 16:30 | Emergency (ER) | payer MEDICAID ==
[2018-12-13] MEDS ORDERED: LORazepam 0.5 MG TABLET PO STA (17:16)
[2018-12-13 17:47] LABS: BASOPHILS % (AUTO) 0.4 %; HGB - HEMOGLOBIN 14.9 g/dL (12.0-16.0); LYMPHOCYTES # (AUTO) 0.8 10^3/uL (1.5-3.5); LYMPHOCYTES % (AUTO) 12.8 %; MEAN CORPUSCULAR HEMOGLOBIN 32.4 pg (27.0-31.0); MEAN CORPUSCULAR HGB CONC 33.4 g/dL (32.0-36.0); MEAN PLATELET VOLUME 9.1 fL (7.9-10.8); MONOCYTES # (AUTO) 0.2 10^3/uL (0.0-1.0); MONOCYTES % (AUTO) 2.4 %; NEUTROPHILS # (AUTO) 5.5 10^3/uL (1.5-6.6); NEUTROPHILS % (AUTO) 84.4 %; PLT - PLATELET COUNT 188 10^3/uL (130-450); WHITE BLOOD COUNT 6.5 x10^3/uL (4.8-10.8)
[2018-12-13 17:50] LABS: MUDS CUTOFF CONCENTRATIONS CUTOFF CONC BELOW:
[2018-12-13 17:53] LABS: BILIRUBIN,URINE NEGATIVE (NEGATIVE); GLUCOSE, URINE (UA) NEGATIVE (NEGATIVE); KETONES,URINE (UA) NEGATIVE (NEGATIVE); LEUKOCYTE ESTERASE, URINE NEGATIVE (NEGATIVE); NITRITE,URINE NEGATIVE (NEGATIVE); OCCULT BLOOD,URINE NEGATIVE (NEGATIVE); PH,URINE 6.5 PH (5.0-7.5); PROTEIN,URINE 30 mg/dL (NEGATIVE); UROBILINOGEN,URINE 0.2 (NORMAL) E.U./dL (NORMAL)
[2018-12-13 18:05] LABS: AMPHETAMINE SCREEN,URINE POSITIVE (NEGATIVE); BENZODIAZEPINES SCREEN, URINE NEGATIVE (NEGATIVE); COCAINE SCREEN URINE NEGATIVE (NEGATIVE); METHADONE SCREEN, URINE NEGATIVE (NEGATIVE); METHAMPHETAMINES SCREEN, URINE NEGATIVE (NEGATIVE); OPIATE SCREEN, URINE NEGATIVE (NEGATIVE); OXYCODONE SCREEN, URINE NEGATIVE (NEGATIVE); PROPOXYPHENE SCREEN, URINE NEGATIVE (NEGATIVE); TRICYCLIC ANTIDEPRESSANT,URINE POSITIVE (NEGATIVE)
--- NOTE | 2018-12-13 18:05 | ED Physician Documentation ---
PD HPI MHE - Stated complaint Stated Complaint: SI - Chief complaint Chief Complaint: MHE - History obtained from History obtained from: Patient, Police (Is a 43-year-old woman brought in by police department for potential suicidal ideation. She states that she has been having a lot of marital problems with her and is very upset because her is bringing her [id number] to live in the house before the divorce is finalized. She denies suicidal ideation to me but sometimes feels like it would be better she worked on this world. 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 : None HEENT: Chronic sinusitis Psych: Depression, Anxiety Musculoskeletal: None Derm: None - Past Surgical History Past Surgical History: Yes Ortho: Spine surgery HEENT: Tonsil/Adenoidectomy - Present Medications Home Medications: Ambulatory Orders Medication Instructions Recorded Confirmed RX: traZODone [Desyrel] 100 mg PO QPM 07/19/16 03/08/18 Prazosin [Minipress] 2 mg PO DAILY 12/02/16 03/08/18 buPROPion [Wellbutrin Sr] 100 mg PO BID 12/26/17 03/08/18 Ondansetron Odt [Zofran] 4 mg TL Q6H PRN #10 tablet 01/26/18 03/08/18 Promethazine [Phenergan] 25 mg PO Q6H PRN #25 tab 02/13/18 03/08/18 Propranolol [Inderal] 80 mg PO DAILY 02/13/18 03/08/18 RX: Topiramate 50 mg PO DAILY 02/13/18 03/08/18 Cyclobenzaprine [Flexeril] 10 mg PO TID PRN #10 tablet 03/31/18 SUMAtriptan [Imitrex] 25 mg PO BID PRN #10 tablet 03/31/18 Butalb/Acetaminophen/Caffeine 1 each PO Q4H PRN #10 capsule 04/23/18 [Fioricet 50-300-40 mg Capsule] Cyclobenzaprine [Flexeril] 10 mg PO TID PRN #10 tablet 04/23/18 Butalb/Acetaminophen/Caffeine 1 each PO Q4HR #10 capsule 08/24/18 [Fioricet 50-300-40 mg Capsule] - Allergies Allergies/Adverse Reactions: Allergies Allergy/AdvReac Type Severity Reaction Status Date / Time Penicillins Allergy Rash Verified 08/24/18 20:04 - Social History Does the pt smoke?: No Smoking Status: Never smoker Does the pt drink ETOH?: Yes Does the pt have substance abuse?: No - Family History Family history: reports: Non contributory - Immunizations Immunizations are current?: Yes - POLST Patient has POLST: No PD ED PE NORMAL - Vitals Vital signs reviewed: Yes - General General: Alert and oriented X 3, No acute distress - HEENT HEENT: PERRL, EOMI - Neck Neck: Supple, no meningeal sign, No bony TTP - Cardiac Cardiac: RRR, No murmur - Respiratory Respiratory: No respiratory distress, Clear bilaterally - Abdomen Abdomen: Soft, Non tender - Back Back: No CVA TTP, No spinal TTP - Derm Derm: Normal color, Warm and dry - Extremities Extremities: No edema, No calf tenderness / cord - Neuro Neuro: Alert and oriented X 3, Normal speech - Psych Psych: Normal affect, Other (Intermittently tearful) Results - Vitals Vitals: Vital Signs - 24 hr 12/13/18 12/13/18 12/14/18 16:47 17:00 01:01 Temperature 36.2 C L 36.2 C L 36.3 C L Heart Rate 77 77 63 Respiratory 22 22 19 Rate Blood Pressure 155/97 H 155/97 H 129/91 H O2 Saturation 97 97 97 Oxygen O2 Source Room air - Labs Labs: Laboratory Tests 12/13/18 12/13/18 12/13/18 17:20 17:20 17:42 WBC 6.5 RBC 4.60 Hgb 14.9 Hct 44.6 MCV 97.0 MCH 32.4 H MCHC 33.4 RDW 13.0 Plt Count 188 MPV 9.1 Neut # (Auto) 5.5 Lymph # (Auto) 0.8 L Rhea # (Auto) 0.2 Eos # (Auto) 0.0 Baso # (Auto) 0.0 Absolute Nucleated RBC 0.00 Nucleated RBC % 0.0 Sodium Potassium Chloride Carbon Dioxide Anion Gap BUN Creatinine Estimated GFR (MDRD) Glucose Calcium Total Bilirubin AST ALT Alkaline Phosphatase Total Protein Albumin Globulin Albumin/Globulin Ratio Lipase TSH Urine Color YELLOW Urine Clarity SL Urine pH 6.5 Ur Specific Banner 1.025 Urine Protein 30 H Urine Glucose (UA) NEGATIVE Urine Ketones NEGATIVE Urine Occult Blood NEGATIVE Urine Nitrite NEGATIVE Urine Bilirubin NEGATIVE Urine Urobilinogen 0.2 (NORMAL) Ur Leukocyte Esterase NEGATIVE Urine RBC None Seen Urine WBC 0-3 Ur Squamous Epith Cells MANY Squamous H Urine Bacteria Rare Ur Microscopic Review INDICATED Urine Culture Comments NOT INDICATED Urine HCG, Qual NEGATIVE Salicylates Urine Opiates Screen NEGATIVE Ur Oxycodone Screen NEGATIVE Urine Methadone Screen NEGATIVE Ur Propoxyphene Screen NEGATIVE Acetaminophen Ur Barbiturates Screen POSITIVE H Ur Tricyclics Screen POSITIVE H Ur Phencyclidine Scrn NEGATIVE Ur Amphetamine Screen POSITIVE H U Methamphetamines Scrn NEGATIVE U Benzodiazepines Scrn NEGATIVE Urine Cocaine Screen NEGATIVE U Cannabinoids Screen POSITIVE H Ethyl Alcohol 12/13/18 12/13/18 17:42 17:42 WBC RBC Hgb Hct MCV MCH MCHC RDW Plt Count MPV Neut # (Auto) Lymph # (Auto) Rhea # (Auto) Eos # (Auto) Baso # (Auto) Absolute Nucleated RBC Nucleated RBC % Sodium 138 Potassium 3.9 Chloride 103 Carbon Dioxide 24 Anion Gap 11.0 BUN 22 H Creatinine 0.7 Estimated GFR (MDRD) 92 Glucose 114 H Calcium 9.4 Total Bilirubin 0.4 AST 22 ALT 18 Alkaline Phosphatase 73 Total Protein 7.2 Albumin 4.3 Globulin 2.9 Albumin/Globulin Ratio 1.5 Lipase 27 TSH 0.42 Urine Color Urine Clarity Urine pH Ur Specific Banner Urine Protein Urine Glucose (UA) Urine Ketones Urine Occult Blood Urine Nitrite Urine Bilirubin Urine Urobilinogen Ur Leukocyte Esterase Urine RBC Urine WBC Ur Squamous Epith Cells Urine Bacteria Ur Microscopic Review Urine Culture Comments Urine HCG, Qual Salicylates < 6.0 Urine Opiates Screen Ur Oxycodone Screen Urine Methadone Screen Ur Propoxyphene Screen Acetaminophen 14 Ur Barbiturates Screen Ur Tricyclics Screen Ur Phencyclidine Scrn Ur Amphetamine Screen U Methamphetamines Scrn U Benzodiazepines Scrn Urine Cocaine Screen U Cannabinoids Screen Ethyl Alcohol 5.2 PD MEDICAL DECISION MAKING - ED course ED course: Pt with report of SI, but vague here for me. Corroborating evidence from [facility] on chart is concerning. Seen by telepsych, recommends admission. Pt not agreeable and at time impulsive and belligerent in the dept. DCR disptached. Departure - Departure Disposition: 01 Home, Self Care Clinical Impression: Depressive disorder, Anxiety Condition: Good Instructions: ED Stress React, ED Depression Follow-Up: Arian Soria JR, COMBINATION WELDER [Physician No Access] - Within 3 Days Comments: Return if you worsen or feel unsafe. You should discuss with your PCP if he feels comfortable changing your clonazepam taper. Crisis Line and is available to talk to someone [email or web address] is also available to chat with someone online if you prefer. There are also many resources on this website and apps for your phone to help with your mental health You can also text the word START to [phone] to chat with someome via text. Discharge Date/Time: 12/14/18 01:03
[2018-12-13 18:10] LABS: ACETAMINOPHEN 14 ug/mL (10-30); ALBUMIN 4.3 g/dL (3.2-5.5); ALBUMIN/GLOBULIN RATIO 1.5 (1.0-2.2); ALKALINE PHOSPHATASE 73 IU/L (42-121); ALT ALANINE AMINOTRANSFERASE 18 IU/L (10-60); AST ASPARTATE AMINOTRANSFERASE 22 IU/L (10-42); BILIRUBIN,TOTAL 0.4 mg/dL (0.2-1.0); BUN - BLOOD UREA NITROGEN 22 mg/dL (6-20); CALCIUM 9.4 mg/dL (8.5-10.3); CARBON DIOXIDE - CO2 24 mmol/L (21-32); CHLORIDE 103 mmol/L (101-111); CREATININE 0.7 mg/dL (0.4-1.0); GFR - MDRD 92 (>89); GLUCOSE 114 mg/dL (70-100); LIPASE 27 U/L (22-51); SALICYLATE < 6.0 mg/dL; SODIUM 138 mmol/L (135-145); TOTAL PROTEIN 7.2 g/dL (6.7-8.2)
[2018-12-13] MEDS ORDERED: hydrOXYzine PAMOATE 25 MG CAPSULE PO STA (18:12)
[2018-12-13 18:21] LABS: CLARITY,URINE SL (CLEAR)
[2018-12-13 18:37] LABS: BACTERIA,URINE Rare /HPF (None Seen); RBC,URINE None Seen /HPF (0-5); SQUAMOUS EPITHELIAL CELL,UR MANY Squamous (<= Few)
[2018-12-13 18:38] LABS: HCG UR QUAL NEGATIVE
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
--- NOTE | 2018-12-14 00:47 | ED Physician Documentation ---
ED Addendum - Addendum Addendum: 12/14/18 00:45 evaluated by Kati SIFUENTES, who states patient does not meet criteria for involuntary hold. Patient does not want to go to a psych facility voluntarily. Patient has an appointment with her counselor on Monday. She contracts for safety. Message left for by [facility]. Patient counseled regarding signs and symptoms for which I believe and urgent re-evaluation would be necessary. Patient with good understanding of and agreement to plan and is comfortable going home at this time This document was made in part using voice recognition software. While efforts are made to proofread this document, sound alike and grammatical errors may occur. Departure - Departure Disposition: Home, Self Care Clinical Impression: Depressive disorder, Anxiety Condition: Good Instructions: ED Depression, ED Stress React Follow-Up: Arian Soria JR, BAR TACKER SEWING MACHINE [Physician No Access] - Within 3 Days Comments: Return if you worsen or feel unsafe. You should discuss with your PCP if he feels comfortable changing your clonazepam taper. Crisis Line and is available to talk to someone [email or web address] is also available to chat with someone online if you prefer. There are also many resources on this website and apps for your phone to help with your mental health You can also text the word START to [phone] to chat with someome via text.
[2018-12-14 01:02] VITALS: BP 129/91
== END 2018-12-14 01:03 | disposition home or self-care (01) ==
LOC: ED 16:30
DX: F32.9 Major depressive disorder, single episode, unspecified (principal); F41.9 Anxiety disorder, unspecified
CPT/HCPCS: 36415; 80053; 80306; 80307; 80320; 80329; 81001; 81025; 83690; 84443; 85025; 99283; A9270; Q3014; 81003; 87086

== ENCOUNTER 2019-01-10 19:30 | Emergency (ER) | payer MEDICAID ==
[2019-01-10 19:40] VITALS: BP 137/84
--- NOTE | 2019-01-10 20:17 | ED Physician Documentation ---
PD HPI HEADACHE - Stated complaint Stated Complaint: WILKERSON - Chief complaint Chief Complaint: Neuro - History obtained from History obtained from: Patient - History of Present Illness Timing - onset: Other (3 days of gradual onset mostly posterior headache and neck pain similar to prior headaches. She gets Botox for these and had her last injection a few weeks ago. She is under a lot of stress right now. 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 : None HEENT: Chronic sinusitis Psych: Depression, Anxiety Musculoskeletal: None Derm: None - Past Surgical History Past Surgical History: Yes Ortho: Spine surgery HEENT: Tonsil/Adenoidectomy - Present Medications Home Medications: Ambulatory Orders Medication Instructions Recorded Confirmed RX: traZODone [Desyrel] 100 mg PO QPM 07/19/16 03/08/18 Prazosin [Minipress] 2 mg PO DAILY 12/02/16 03/08/18 buPROPion [Wellbutrin Sr] 100 mg PO BID 12/26/17 03/08/18 Ondansetron Odt [Zofran] 4 mg TL Q6H PRN #10 tablet 01/26/18 03/08/18 Promethazine [Phenergan] 25 mg PO Q6H PRN #25 tab 02/13/18 03/08/18 Propranolol [Inderal] 80 mg PO DAILY 02/13/18 03/08/18 RX: Topiramate 50 mg PO DAILY 02/13/18 03/08/18 Cyclobenzaprine [Flexeril] 10 mg PO TID PRN #10 tablet 03/31/18 SUMAtriptan [Imitrex] 25 mg PO BID PRN #10 tablet 03/31/18 Butalb/Acetaminophen/Caffeine 1 each PO Q4H PRN #10 capsule 04/23/18 [Fioricet 50-300-40 mg Capsule] Cyclobenzaprine [Flexeril] 10 mg PO TID PRN #10 tablet 04/23/18 Butalb/Acetaminophen/Caffeine 1 each PO Q4HR #10 capsule 08/24/18 [Fioricet 50-300-40 mg Capsule] Butalb/Acetaminophen/Caffeine 1 each PO Q4H PRN #10 capsule 01/10/19 [Fioricet 50-300-40 mg Capsule] Cyclobenzaprine [Flexeril] 10 mg PO TID PRN #14 tablet 01/10/19 Ibuprofen [Motrin] 800 mg PO Q8H PRN #30 tablet 01/10/19 - Allergies Allergies/Adverse Reactions: Allergies Allergy/AdvReac Type Severity Reaction Status Date / Time Penicillins Allergy Rash Verified 01/10/19 19:39 - Social History Does the pt smoke?: No Smoking Status: Never smoker Does the pt drink ETOH?: Yes Does the pt have substance abuse?: No - Immunizations Immunizations are current?: Yes - POLST Patient has POLST: No PD ED PE NORMAL - Vitals Vital signs reviewed: Yes - General General: Alert and oriented X 3, No acute distress - HEENT HEENT: PERRL, EOMI - Neck Neck: Supple, no meningeal sign, No bony TTP, Other (Neck muscles are tender but she is supple) - Neuro Neuro: Alert and oriented X 3, 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 As such I doubt subarachnoid hemorrhage. There are no infectious symptoms such as fever or stiff neck to make me suspect meningitis. No carbon monoxide exposure by history. Departure - Departure Disposition: 01 Home, Self Care Clinical Impression: Tension headache Condition: Good Record reviewed to determine appropriate education?: Yes Instructions: ED Headache Tension Prescriptions: Butalb/Acetaminophen/Caffeine [Fioricet 50-300-40 mg Capsule] 1 each PO Q4H PRN #10 capsule PRN Reason: Headache Cyclobenzaprine [Flexeril] 10 mg PO TID PRN #14 tablet PRN Reason: Spasms Ibuprofen [Motrin] 800 mg PO Q8H PRN #30 tablet PRN Reason: PAIN &/OR FEVER Comments: Call your doctor to arrange a follow-up appointment, make the next available appointment. In the interim, return anytime if worse or if new symptoms develop. Your blood pressure was elevated today on check into the emergency department. This does not mean that you have hypertension, it is a common phenomenon to come to the emergency department and have elevated blood pressure. I recommend that you see your primary care physician within the week to have it rechecked when you are feeling better. Discharge Date/Time: 01/10/19 20:20
== END 2019-01-10 20:20 | disposition home or self-care (01) ==
LOC: ED 19:30
DX: G44.209 Tension-type headache, unspecified, not intractable (principal); R03.0 Elevated blood-pressure reading, without diagnosis of hypertension
CPT/HCPCS: 99283

== ENCOUNTER 2019-02-07 15:16 | Emergency (ER) | payer MEDICAID ==
[2019-02-07] MEDS ORDERED: diphenhydrAMINE INJ 50 MG/ML VIAL IVP STA (18:33)
[2019-02-07] MEDS ORDERED: METOCLOPRAMIDE 10 MG/2 ML VIAL IVP STA (18:33)
[2019-02-07] MEDS ORDERED: SODIUM CHLORIDE 0.9% 1,000 ML IV ONE (18:33)
[2019-02-07 18:39] LABS: BILIRUBIN,URINE NEGATIVE (NEGATIVE); GLUCOSE, URINE (UA) NEGATIVE (NEGATIVE); KETONES,URINE (UA) NEGATIVE (NEGATIVE); LEUKOCYTE ESTERASE, URINE NEGATIVE (NEGATIVE); NITRITE,URINE NEGATIVE (NEGATIVE); OCCULT BLOOD,URINE TRACE-INTA (NEGATIVE); PH,URINE 6.5 PH (5.0-7.5); PROTEIN,URINE NEGATIVE (NEGATIVE); UROBILINOGEN,URINE 0.2 (NORMAL) E.U./dL (NORMAL)
[2019-02-07 18:42] LABS: CLARITY,URINE CLEAR (CLEAR); HCG UR QUAL NEGATIVE
[2019-02-07 18:55] LABS: BASOPHILS % (AUTO) 0.7 %; EOSINOPHILS # (AUTO) 0.2 10^3/uL (0.0-0.7); EOSINOPHILS % (AUTO) 3.2 %; LYMPHOCYTES # (AUTO) 2.2 10^3/uL (1.5-3.5); LYMPHOCYTES % (AUTO) 32.5 %; MEAN CORPUSCULAR HEMOGLOBIN 33.3 pg (27.0-31.0); MEAN CORPUSCULAR HGB CONC 34.7 g/dL (32.0-36.0); MEAN PLATELET VOLUME 8.8 fL (7.9-10.8); MONOCYTES # (AUTO) 0.4 10^3/uL (0.0-1.0); MONOCYTES % (AUTO) 5.8 %; NEUTROPHILS % (AUTO) 57.8 %; PLT - PLATELET COUNT 236 10^3/uL (130-450); RED BLOOD COUNT 3.89 10^6/uL (4.20-5.40); RED CELL DISTRIBUTION WIDTH 12.4 % (12.0-15.0); WHITE BLOOD COUNT 6.8 x10^3/uL (4.8-10.8)
[2019-02-07 19:06] LABS: ALBUMIN 3.9 g/dL (3.2-5.5); ALBUMIN/GLOBULIN RATIO 1.3 (1.0-2.2); BILIRUBIN,TOTAL 0.5 mg/dL (0.2-1.0); CALCIUM 9.4 mg/dL (8.5-10.3); CREATININE 0.6 mg/dL (0.4-1.0); TOTAL PROTEIN 6.9 g/dL (6.7-8.2)
--- NOTE | 2019-02-07 19:27 | ED Physician Documentation ---
History of Present Illness - Stated complaint Stated Complaint: ABD PX/WILKERSON - Chief complaint Chief Complaint: General - Additonal information Additional information: 43-year-old female presents the emergency department with numerous complaints. The patient has chronic headaches and is requesting a refill of her Fioricet since this is the only medication that helps her. The patient denies any new or different symptoms associated with her headaches. The patient denies fevers, chills, sudden onset or radiation into her neck. No acute focal neurologic changes. The patient reports ongoing abdominal discomfort since getting out of correction. The patient denies any focal area of pain or discomfort. The patient reports nausea and intermittent episodes of vomiting. No clear triggering factors. No relieving factors. 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 HEENT: Chronic sinusitis Psych: Depression, Anxiety Musculoskeletal: None Derm: None - Past Surgical History Past Surgical History: Yes Ortho: Spine surgery HEENT: Tonsil/Adenoidectomy - Present Medications Home Medications: Ambulatory Orders Medication Instructions Recorded Confirmed traZODone [Desyrel] 100 mg PO QPM 07/19/16 03/08/18 Prazosin [Minipress] 2 mg PO DAILY 12/02/16 03/08/18 buPROPion [Wellbutrin Sr] 100 mg PO BID 12/26/17 03/08/18 Ondansetron Odt [Zofran] 4 mg TL Q6H PRN #10 tablet 01/26/18 03/08/18 Promethazine [Phenergan] 25 mg PO Q6H PRN #25 tab 02/13/18 03/08/18 Propranolol [Inderal] 80 mg PO DAILY 02/13/18 03/08/18 Topiramate 50 mg PO DAILY 02/13/18 03/08/18 Cyclobenzaprine [Flexeril] 10 mg PO TID PRN #10 tablet 03/31/18 SUMAtriptan [Imitrex] 25 mg PO BID PRN #10 tablet 03/31/18 Butalb/Acetaminophen/Caffeine 1 each PO Q4H PRN #10 capsule 04/23/18 [Fioricet 50-300-40 mg Capsule] Cyclobenzaprine [Flexeril] 10 mg PO TID PRN #10 tablet 04/23/18 Butalb/Acetaminophen/Caffeine 1 each PO Q4HR #10 capsule 08/24/18 [Fioricet 50-300-40 mg Capsule] Butalb/Acetaminophen/Caffeine 1 each PO Q4H PRN #10 capsule 01/10/19 [Fioricet 50-300-40 mg Capsule] Cyclobenzaprine [Flexeril] 10 mg PO TID PRN #14 tablet 01/10/19 Ibuprofen [Motrin] 800 mg PO Q8H PRN #30 tablet 01/10/19 Butalb/Acetaminophen/Caffeine 1 each PO Q8HR PRN #10 capsule 02/07/19 [Fioricet 50-300-40 mg Capsule] Ondansetron HCl [Zofran] 4 mg PO Q6HR PRN #30 tablet 02/07/19 - Allergies Allergies/Adverse Reactions: Allergies Allergy/AdvReac Type Severity Reaction Status Date / Time Penicillins Allergy Rash Verified 02/07/19 16:05 - Social History Does the pt smoke?: No Smoking Status: Never smoker Does the pt drink ETOH?: Yes Does the pt have substance abuse?: No - Immunizations Immunizations are current?: Yes - POLST Patient has POLST: No PD ED PE NORMAL - General General: Alert and oriented X 3, No acute distress - HEENT HEENT: Atraumatic, PERRL, EOMI, Ears normal - Neck Neck: Supple, no meningeal sign - Cardiac Cardiac: RRR, Strong equal pulses - Respiratory Respiratory: No respiratory distress, Clear bilaterally - Abdomen Abdomen: Soft, Non tender, Non distended - Derm Derm: Normal color - Extremities Extremities: No deformity - Neuro Neuro: Alert and oriented X 3, Normal speech - Psych Psych: Normal mood Results - Vitals Vitals: Vital Signs - 24 hr 02/07/19 02/07/19 02/07/19 15:57 18:34 19:35 Temperature 37 C 36.5 C Heart Rate 71 70 Respiratory 16 18 17 Rate Blood Pressure 124/80 125/77 O2 Saturation 98 97 Oxygen O2 Source Room air - Labs Labs: Laboratory Tests 02/07/19 02/07/19 02/07/19 18:33 18:46 18:46 WBC 6.8 RBC 3.89 L Hgb 13.0 Hct 37.4 MCV 96.0 MCH 33.3 H MCHC 34.7 RDW 12.4 Plt Count 236 MPV 8.8 Neut # (Auto) 4.0 Lymph # (Auto) 2.2 [place] # (Auto) 0.4 Eos # (Auto) 0.2 Baso # (Auto) 0.0 Absolute Nucleated RBC 0.01 Nucleated RBC % 0.1 Sodium 139 Potassium 3.6 Chloride 107 Carbon Dioxide 22 Anion Gap 10.0 BUN 9 Creatinine 0.6 Estimated GFR (MDRD) 110 Glucose 84 Calcium 9.4 Total Bilirubin 0.5 AST 30 ALT 48 Alkaline Phosphatase 127 H Total Protein 6.9 Albumin 3.9 Globulin 3.0 Albumin/Globulin Ratio 1.3 Lipase 46 Urine Color YELLOW Urine Clarity CLEAR Urine pH 6.5 Ur Specific [place] 1.010 Urine Protein NEGATIVE Urine Glucose (UA) NEGATIVE Urine Ketones NEGATIVE Urine Occult Blood TRACE-INTA Urine Nitrite NEGATIVE Urine Bilirubin NEGATIVE Urine Urobilinogen 0.2 (NORMAL) Ur Leukocyte Esterase NEGATIVE Ur Microscopic Review NOT INDICATED Urine Culture Comments NOT INDICATED Urine HCG, Qual NEGATIVE PD MEDICAL DECISION MAKING - ED course ED course: The patient refused any lab work or workup regarding her abdominal pain or headaches. The patient only wants Zofran and Fioricet prescription. I agreed to give a short course of both. I recommended follow-up with primary care for ongoing management. The patient will return to the emergency department for any worsening or any concerns Departure - Departure Disposition: 01 Home, Self Care Clinical Impression: Headache Qualifiers: Headache type: unspecified Headache chronicity pattern: chronic headache Intractability: not intractable Qualified Code(s): R51 - Headache Abdominal pain Qualifiers: Abdominal location: generalized Qualified Code(s): R10.84 - Generalized abdominal pain Condition: Good Instructions: ED Abdominal Pain Unkn Cause, ED Cephalgia Unspecified Follow-Up: [facility] [Provider Group] - Within 1 week Prescriptions: Ondansetron HCl [Zofran] 4 mg PO Q6HR PRN #30 tablet PRN Reason: Nausea / Vomiting Butalb/Acetaminophen/Caffeine [Fioricet 50-300-40 mg Capsule] 1 each PO Q8HR PRN #10 capsule PRN Reason: Headache Comments: Please follow-up with primary care for ongoing medication management Please return to the emergency department for any worsening or concerns. You refused any investigation regarding your headache or abdominal pain and only wanted medications to go home with. Discharge Date/Time: 02/07/19 19:35
[2019-02-07 19:37] VITALS: BP 125/77
== END 2019-02-07 19:35 | disposition home or self-care (01) ==
LOC: ED 15:16
DX: R51 Headache (principal); R10.84 Generalized abdominal pain; R11.2 Nausea with vomiting, unspecified; Z76.0 Encounter for issue of repeat prescription
CPT/HCPCS: 36415; 80053; 81001; 81003; 81025; 83690; 85025; 87086; 99283

== ENCOUNTER 2019-06-24 17:42 | Emergency (ER) | payer MEDICAID ==
[2019-06-24 17:53] VITALS: BP 133/97
--- NOTE | 2019-06-24 18:58 | XRAY Report ---
Reason: L ankle pain s/p fall Procedure Date: 06/24/2019 Accession Number: [id number] / [id number] Procedure: XR - Ankle 3 View LT CPT Code: FULL RESULT: EXAM: LEFT ANKLE RADIOGRAPHY EXAM DATE: 06/24/2019 06:27 PM. CLINICAL HISTORY: L ankle pain s/p fall. COMPARISON: None. TECHNIQUE: 3 views. FINDINGS: Bones: Normal. No fractures or bone lesions. Joints: Normal. No effusion. No subluxations. The ankle mortise is normally aligned. Soft Tissues: Mild soft tissue swelling overlying left lateral malleolus. IMPRESSION: Mild soft tissue swelling overlying left lateral malleolus. No acute displaced fracture or malalignment. RADIA
[2019-06-24] MEDS ORDERED: HYDROcod/ACETAM 5/325 MG TABLET PO STA (19:01)
--- NOTE | 2019-06-24 19:04 | ED Physician Documentation ---
PD HPI LOWER EXT INJURY - Stated complaint Stated Complaint: LT ANKLE PX - Chief complaint Chief Complaint: Trauma Ext - History obtained from History obtained from: Patient - History of Present Illness PD HPI LOW EXT INJURY LOCATION: Left, Ankle Timing - onset: How many days ago (2) Timing - duration: Days (2) Timing - details: Gradual onset Pain level max: 6 Pain level now: 5 Improved by: Rest, Ice, Immobilization Worsened by: Moving, Palpating Associated symptoms: Swelling. No: Weakness, Numbness, Tingling Contributing factors: No: Anticoagulated - Additional information Additional information: Patient states that she twisted her left ankle while dancing. 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 HEENT: Chronic sinusitis Psych: Depression, Anxiety Musculoskeletal: None Derm: None - Past Surgical History Past Surgical History: Yes Ortho: Spine surgery HEENT: Tonsil/Adenoidectomy - Present Medications Home Medications: Ambulatory Orders Medication Instructions Recorded Confirmed traZODone [Desyrel] 100 mg PO QPM 07/19/16 03/08/18 Prazosin [Minipress] 2 mg PO DAILY 12/02/16 03/08/18 buPROPion [Wellbutrin Sr] 100 mg PO BID 12/26/17 03/08/18 Ondansetron Odt [Zofran] 4 mg TL Q6H PRN #10 tablet 01/26/18 03/08/18 Promethazine [Phenergan] 25 mg PO Q6H PRN #25 tab 02/13/18 03/08/18 Propranolol [Inderal] 80 mg PO DAILY 02/13/18 03/08/18 Topiramate 50 mg PO DAILY 02/13/18 03/08/18 Cyclobenzaprine [Flexeril] 10 mg PO TID PRN #10 tablet 03/31/18 SUMAtriptan [Imitrex] 25 mg PO BID PRN #10 tablet 03/31/18 Butalb/Acetaminophen/Caffeine 1 each PO Q4H PRN #10 capsule 04/23/18 [Fioricet 50-300-40 mg Capsule] Cyclobenzaprine [Flexeril] 10 mg PO TID PRN #10 tablet 04/23/18 Butalb/Acetaminophen/Caffeine 1 each PO Q4HR #10 capsule 08/24/18 [Fioricet 50-300-40 mg Capsule] Butalb/Acetaminophen/Caffeine 1 each PO Q4H PRN #10 capsule 01/10/19 [Fioricet 50-300-40 mg Capsule] Cyclobenzaprine [Flexeril] 10 mg PO TID PRN #14 tablet 01/10/19 Ibuprofen [Motrin] 800 mg PO Q8H PRN #30 tablet 01/10/19 Butalb/Acetaminophen/Caffeine 1 each PO Q8HR PRN #10 capsule 02/07/19 [Fioricet 50-300-40 mg Capsule] Ondansetron HCl [Zofran] 4 mg PO Q6HR PRN #30 tablet 02/07/19 Hydrocodone/Acetaminophen 1 - 2 each PO Q6H PRN #14 tablet 06/24/19 [Hydrocodon-Acetaminophen 5-325] - Allergies Allergies/Adverse Reactions: Allergies Allergy/AdvReac Type Severity Reaction Status Date / Time Penicillins Allergy Rash Verified 06/24/19 17:53 - Social History Does the pt smoke?: No Smoking Status: Never smoker Does the pt drink ETOH?: Yes Does the pt have substance abuse?: No - Immunizations Immunizations are current?: Yes - POLST Patient has POLST: No PD ED PE NORMAL - Vitals Vital signs reviewed: Yes - General General: Alert and oriented X 3, No acute distress, Well developed/nourished - HEENT HEENT: Moist mucous membranes - Derm Derm: Warm and dry - Extremities Extremities: Other (L ankle - Tender to palpation over the lateral malleolus. No tenderness over the foot. Otherwise normal examination of the foot and ankle. Neurovascularly intact.) - Neuro Neuro: Alert and oriented X 3 Results - Vitals Vitals: Oxygen O2 Source Room air - Rads (name of study) L ankle xray Radiology: Prelim report reviewed, EMP read contemporaneously, See rad report (No acute fracture or dislocation) PD MEDICAL DECISION MAKING - ED course Complexity details: reviewed results, re-evaluated patient, considered differential, d/w patient ED course: 43-year-old female with a left ankle sprain. No acute findings on x-ray. Will place in a Aircast and on crutches. Patient counseled regarding signs and symptoms for which I believe and urgent re-evaluation would be necessary. Patient with good understanding of and agreement to plan and is comfortable going home at this time This document was made in part using voice recognition software. While efforts are made to proofread this document, sound alike and grammatical errors may occur. Departure - Departure Disposition: 01 Home, Self Care Clinical Impression: Left ankle sprain Qualifiers: Encounter type: initial encounter Involved ligament of ankle: unspecified ligament Qualified Code(s): S93.402A - Sprain of unspecified ligament of left ankle, initial encounter Condition: Good Instructions: ED Sprain Ankle W X Ray Follow-Up: your,doctor in 1 week [Other] Prescriptions: Hydrocodone/Acetaminophen [Hydrocodon-Acetaminophen 5-325] 1 - 2 each PO Q6H PRN #14 tablet PRN Reason: pain Comments: Return if you worsen. Follow-up with your doctor for further care. Your x-ray does not show any fracture tonight. You may bear weight as tolerated. Follow- up with your doctor in 1 week for repeat evaluation of your ankle. Discharge Date/Time: 06/24/19 19:24
== END 2019-06-24 19:24 | disposition home or self-care (01) ==
LOC: ED 17:42
DX: S93.402A Sprain of unspecified ligament of left ankle, initial encounter (principal); X50.1XXA Overexertion from prolonged static or awkward postures, initial encounter; Y93.41 Activity, dancing
CPT/HCPCS: 73610; 99283; 99284; A9270